=== PATIENT | male | born 1940 | race Caucasian/White ===

== ENCOUNTER 2017-03-11 10:02 | Inpatient (IN) | payer MEDICARE, OTHER ==
[~2017-03-11] VITALS: Ht 177.8 cm; Wt 108.0 kg
[2017-03-11 11:25] VITALS: BP 154/87
[2017-03-11] MEDS ORDERED: TAMS0.4C97 PO (12:18)
[2017-03-11] MEDS ORDERED: HYDR-2758 PO (12:18)
[2017-03-11 12:35] LABS: BASO % 1 % (0-3); EOS % 6 % (0-3); HEMATOCRIT 35.9 % (39.0-53.0); HEMOGLOBIN 11.9 g/dL (13.0-17.5); LYMPH # 1.1 x10^3/uL (1.0-4.8); LYMPH % 45 % (24-48); MEAN CORPUSCULAR HEMOGLOBIN 30 pg (25-35); MEAN CORPUSCULAR HGB CONC 33 g/dL (31-37); MEAN CORPUSCULAR VOLUME 92 fL (79-100); MONO % 1 % (0-9); NEUT % 47 % (31-73); PLATELET COUNT 214 x10^3/uL (140-400); RED BLOOD COUNT 3.93 x10^6/uL (4.30-5.70); RED CELL DISTRIBUTION WIDTH 15.8 % (11.5-14.5); WHITE BLOOD COUNT 2.4 x10^3/uL (4.0-11.0)
[2017-03-11 12:47] LABS: ALBUMIN 3.9 g/dL (3.4-5.0); CALCIUM 9.7 mg/dL (8.5-10.1); CREATININE 4.9 mg/dL (0.7-1.3); GFR 11.5; POTASSIUM 5.2 mmol/L (3.5-5.1); TOTAL BILIRUBIN 0.3 mg/dL (0.2-1.0); TOTAL PROTEIN 7.7 g/dL (6.4-8.2)
--- NOTE | 2017-03-11 13:32 | PDOC2 ---
GI CONSULT Reason For Consult: Abd pain HPI: HPI: 76 y/o male directly admitted by Dr. Edouard. H/o acute onset of severe abd pain since sneezing "hard" ~[address] @ [facility] reportedly showing right rib fracture and possible hernia. Also had MRI of back for pain and limited mobility that showed "something on the spine." Since that time has had diffuse abdominal pain, worst in epigastrium. Constant, keeps awake during the night, possibly worse after eating. Associated w/ nausea. Has lost 24 pounds unintentionally. Has had constipation also; w/ Dulcolax 2 tabs QD has 1 stool every 3-4 days. No vomiting/hematemesis (does cough up phlegm), dysphagia, reflux/heartburn, hematochezia, or melena. No previous EGD. Reports normal colonoscopy ~5 years ago ([facility] - says at [address]). No liver, pancreas, or gallbladder history. Has been taking hydrocodone for pain, was previously taking Aleve. Labs significant for WBC 2.4, Hgb 11.9 w/ normal indices, K 5.2, BUN 53, Cr 4.9. Normal LFTs. UA and CT A/P have been ordered. IR has also been consulted for biopsy of L3. PMH: PMH: right wrist fracture, right rib fracture, prostate cancer s/p radiation, appendectomy, tonsillectomy FH: Family History: No pertinent hx (denies GI cancers) Social History: Smoke: Quit ALCOHOL: none Drugs: None ROS: GEN: Denies fevers, chills, sweats HEENT: Denies blurred vision, sore throat CV: Denies chest pain RESP: Denies shortness of air, cough GI: Per HPI : Denies hematuria, dysuria ENDO: +weight loss NEURO: Denies confusion, dizziness MSK: Denies weakness, joint pain/swelling SKIN: Denies jaundice, pruritus Vitals: Vitals: Vital Signs Date Time Temp Pulse Resp B/P (MAP) Pulse Ox O2 Delivery O2 Flow Rate FiO2 03/11/17 11:25 97.5 87 18 154/87 (109) 93 Room Air 97.5 Labs: Labs: Laboratory Tests Test 03/11/17 12:15 White Blood Count 2.4 x10^3/uL (4.0-11.0) Red Blood Count 3.93 x10^6/uL (4.30-5.70) Hemoglobin 11.9 g/dL (13.0-17.5) Hematocrit 35.9 % (39.0-53.0) Mean Corpuscular Volume 92 fL (79-100) Mean Corpuscular Hemoglobin 30 pg (25-35) Mean Corpuscular Hemoglobin Concent 33 g/dL (31-37) Red Cell Distribution Width 15.8 % (11.5-14.5) Platelet Count 214 x10^3/uL (140-400) Neutrophils (%) (Auto) 47 % (31-73) Lymphocytes (%) (Auto) 45 % (24-48) Monocytes (%) (Auto) 1 % (0-9) Eosinophils (%) (Auto) 6 % (0-3) Basophils (%) (Auto) 1 % (0-3) Neutrophils # (Auto) 1.1 x10^3uL (1.8-7.7) Lymphocytes # (Auto) 1.1 x10^3/uL (1.0-4.8) Monocytes # (Auto) 0.0 x10^3/uL (0.0-1.1) Eosinophils # (Auto) 0.1 x10^3/uL (0.0-0.7) Basophils # (Auto) 0.0 x10^3/uL (0.0-0.2) Sodium Level 139 mmol/L (136-145) Potassium Level 5.2 mmol/L (3.5-5.1) Chloride Level 102 mmol/L (98-107) Carbon Dioxide Level 27 mmol/L (21-32) Anion Gap 10 (6-14) Blood Urea Nitrogen 53 mg/dL (8-26) Creatinine 4.9 mg/dL (0.7-1.3) Estimated GFR (Cockcroft-Gault) 11.5 BUN/Creatinine Ratio 11 (6-20) Glucose Level 111 mg/dL (70-99) Calcium Level 9.7 mg/dL (8.5-10.1) Total Bilirubin 0.3 mg/dL (0.2-1.0) Aspartate Amino Transf (AST/SGOT) 17 U/L (15-37) Alanine Aminotransferase (ALT/SGPT) 37 U/L (16-63) Alkaline Phosphatase 111 U/L (46-116) Total Protein 7.7 g/dL (6.4-8.2) Albumin 3.9 g/dL (3.4-5.0) Albumin/Globulin Ratio 1.0 (1.0-1.7) Allergies: Coded Allergies: No Known Medication Allergies (Verified Allergy, Intermediate, 03/11/17) Medications: Please see EMR. Imaging: Imaging: - PE: GEN: NAD HEENT: Atraumatic, PERRL LUNGS: CTAB anteriorly HEART: RRR ABD: NABS, soft, distended - right more than left, diffusely tender - worst in epigastrium, "knot" over lower right rib EXTREMITY: No edema SKIN: No rashes, no jaundice NEURO/PSYCH: A & O 3 A/P: A/P: Abd pain, nausea, weight loss -acute onset 4 months ago after sneezing, says diagnosed w/ rib fracture and possible hernia on CT @ [facility] -IR consulted for L3 biopsy (he reports previously abnormal MRI of spine); h/o prostate cancer s/p radiation w/ normal PSA recently -constant pain, worse in epigastrium -nausea/retching, has lost >20 pounds Constipation -1 stool every 3-4 days w/ Dulcolax -has been taking hydrocodone for pain (previously Aleve) -reports normal colonoscopy 5 years ago Leukopenia, anemia Hyperkalemia, LISETTE -per primary -- Await CT - r/o obstructive uropathy w/ elevated Cr and h/o prostate cancer. Urology services unavailable here. W/ elevated Cr, would need CT w/o contrast. Already started on PPI, agree w/ this. Add Miralax. FABIO SUTHERLAND Mar 11, 2017 13:32
[2017-03-11] MEDS: IV 1/2 NORMAL SALINE 1,000 ML IV SCH (14:11)
[2017-03-11] MEDS: ONDANSETRON PF 4 MG/2 ML VIAL. IV PRN (14:12)
[2017-03-11] MEDS: HYDROcodone/APAP 5/325MG 1 TAB TABLET PO PRN ×2 (14:12→21:34)
[2017-03-11 14:30] VITALS: BP 150/90
[2017-03-11] MEDS: POLYETHYLENE GLYCOL 3350 17 GM PACKET. PO SCH (15:00)
[2017-03-11 19:00] VITALS: BP 152/72
--- NOTE | 2017-03-11 21:11 | PDOC ---
GENERAL General: see dictated H&P. unexpected renal failure on admit labs and will get renal eval for same. ct not done yet. abnormal lesion L3 on recent MRI spine and will need biopsy as suspicious for malignancy. Problems: VITAL SIGNS Vital Signs: Vital Signs Date Time Temp Pulse Resp B/P (MAP) Pulse Ox O2 Delivery O2 Flow Rate FiO2 03/11/17 19:00 98.6 92 16 152/72 (98) 93 Room Air 98.6 I & O I & O Intake and Output 03/12/17 07:00 Intake Total 990 ml Output Total 350 ml Balance 640 ml Intake Oral 990 ml Output Urine Total 350 ml ALLERGIES Allergies: Allergies Coded Allergies Type Severity Reaction Last Updated Verified No Known Medication Allergies Allergy Intermediate 03/11/17 Yes MEDS Medications: Current Medications Medications (Trade) Dose Ordered Sig/Broderick Start Time Stop Time Status Last Admin Dose Admin Acetaminophen/ Hydrocodone Bitart (Lortab 5/325) 1 tab PRN Q4HRS PRN 03/11/17 12:30 03/11/17 14:12 1 TAB Ondansetron HCl (Zofran) 4 mg PRN Q6HRS PRN 03/11/17 13:15 03/11/17 14:12 4 MG Pantoprazole Sodium (Protonix) 40 mg DAILYAC 03/12/17 07:30 Polyethylene Glycol (miraLAX PACKET) 17 gm DAILY 03/11/17 15:00 Sodium Chloride 1,000 ml @ 75 mls/hr [id number] 03/11/17 12:30 03/11/17 14:11 75 MLS/HR Tamsulosin HCl (Flomax) 0.4 mg DAILY 03/12/17 09:00 LAB Lab: Laboratory Tests Test 03/11/17 12:15 White Blood Count 2.4 x10^3/uL (4.0-11.0) Red Blood Count 3.93 x10^6/uL (4.30-5.70) Hemoglobin 11.9 g/dL (13.0-17.5) Hematocrit 35.9 % (39.0-53.0) Mean Corpuscular Volume 92 fL (79-100) Mean Corpuscular Hemoglobin 30 pg (25-35) Mean Corpuscular Hemoglobin Concent 33 g/dL (31-37) Red Cell Distribution Width 15.8 % (11.5-14.5) Platelet Count 214 x10^3/uL (140-400) Neutrophils (%) (Auto) 47 % (31-73) Lymphocytes (%) (Auto) 45 % (24-48) Monocytes (%) (Auto) 1 % (0-9) Eosinophils (%) (Auto) 6 % (0-3) Basophils (%) (Auto) 1 % (0-3) Neutrophils # (Auto) 1.1 x10^3uL (1.8-7.7) Lymphocytes # (Auto) 1.1 x10^3/uL (1.0-4.8) Monocytes # (Auto) 0.0 x10^3/uL (0.0-1.1) Eosinophils # (Auto) 0.1 x10^3/uL (0.0-0.7) Basophils # (Auto) 0.0 x10^3/uL (0.0-0.2) Sodium Level 139 mmol/L (136-145) Potassium Level 5.2 mmol/L (3.5-5.1) Chloride Level 102 mmol/L (98-107) Carbon Dioxide Level 27 mmol/L (21-32) Anion Gap 10 (6-14) Blood Urea Nitrogen 53 mg/dL (8-26) Creatinine 4.9 mg/dL (0.7-1.3) Estimated GFR (Cockcroft-Gault) 11.5 BUN/Creatinine Ratio 11 (6-20) Glucose Level 111 mg/dL (70-99) Calcium Level 9.7 mg/dL (8.5-10.1) Total Bilirubin 0.3 mg/dL (0.2-1.0) Aspartate Amino Transf (AST/SGOT) 17 U/L (15-37) Alanine Aminotransferase (ALT/SGPT) 37 U/L (16-63) Alkaline Phosphatase 111 U/L (46-116) Total Protein 7.7 g/dL (6.4-8.2) Albumin 3.9 g/dL (3.4-5.0) Albumin/Globulin Ratio 1.0 (1.0-1.7) SIMA MICHAUD MD Mar 11, 2017 21:11
[2017-03-11 23:00] VITALS: BP 164/83
[2017-03-11 23:46] LABS: BILIRUBIN,URINE NEGATIVE (NEG); GLUCOSE,URINE NEGATIVE (NEG); NITRITE,URINE NEGATIVE (NEG); PROTEIN,URINE 30 mg/dL (NEG-TRACE); UROBILINOGEN,URINE 0.2 mg/dL (0.2 mg/dL)
[2017-03-11 23:56] LABS: BACTERIA,URINE 0 /HPF (0-FEW); SQUAMOUS EPITHELIAL CELL,UR FEW /LPF
--- NOTE | 2017-03-12 01:29 | HP ---
ADMIT DATE: 03/11/2017 CHIEF COMPLAINT AND HISTORY OF PRESENT ILLNESS: This is a 76-year-old white male, just met by myself in the office within the last month or less. He is referred by a friend who is the patient of ours. History was dating back is January, breaking his 8th rib at that point in time. Three weeks later, he had fallen and broken his right wrist. He still has ____. He described skin burning on the right upper quadrant, sensation at that point in time. His right upper quadrant was felt to be maybe a little more protuberant, but a CAT scan done on the outside had been negative. He was felt to have possibly a thoracic radicular-type presentation and eventually had an MRI, which showed kind of diffuse narrow abnormalities throughout the spine, but a lesion at L3 was suspicious for metastatic disease. PSA was checked on him and was normal at 1.06. He does have a history of prostate cancer, having received radiation to the same in the past. He also had chest x-ray, which showed no evidence of lung malignancy. MRI showed a 3 cm area of decreased signal intensity involving the L3 vertebral body concerning for metastasis. He was scheduled for bone biopsy. During this time, patient has also lost significant amount of weight. Again he had a CAT scan as an outpatient on 12/22 of this year showing no acute abnormalities. The patient had a BUN of 26 and creatinine of 1.3 done in September of this year at an outside office. PAST MEDICAL HISTORY: Remarkable for the prostate cancer and recent 8th rib fracture and right wrist fracture. MEDICATIONS: Currently hydrocodone ____, which he was taking for pain because of the upcoming bone biopsy that was scheduled. ALLERGIES: He has no known drug allergies. SOCIAL HISTORY: and lives at home with his . Does not abuse alcohol, drugs or tobacco. FAMILY HISTORY: Noncontributory. REVIEW OF SYSTEMS: Remarkable for lot of weight loss as well as epigastric pain, which has been getting worse and is triggered by eating. In addition, he has ongoing back pain that is actually a little higher than L3, but more in the lower thoracic area and this is tender to the touch over the bone. PHYSICAL EXAMINATION: GENERAL: He is a well-developed, well-nourished white male who appears uncomfortable. He was leaning over throughout the exam holding his head. VITAL SIGNS: Stable. He is afebrile. HEAD, EYES, EARS, NOSE AND THROAT: Remarkable for glasses. NECK: Supple without adenopathy or thyromegaly. CHEST: Clear to auscultation and percussion. HEART: Regular rate and rhythm without S3, S4 or murmur. ABDOMEN: Reveals epigastric tenderness without definite hepatosplenomegaly or mass. EXTREMITIES: Without cyanosis, clubbing or edema. NEUROLOGIC: He is intact. IMPRESSION: Abdominal pain with weight loss. Initial laboratory findings at the hospital being that of acute renal failure. In addition, concern for metastatic disease in the spine as outlined above. PLAN: The patient has been admitted. Renal will be consulted. GI has been consulted. Protonix has been started. IR has been consulted for biopsy of the L3 vertebral body and the patient will be monitored, managed and treated appropriately. SIMA MICHAUD MD DR: RIMA/zhane JOB#: [id number] / [id number] SIMA Mclaughlin MD
[2017-03-12] MEDS: IV 1/2 NORMAL SALINE 1,000 ML IV SCH ×3 (03:04→23:00)
[2017-03-12 03:20] VITALS: BP 152/87
[2017-03-12] MEDS: HYDROcodone/APAP 5/325MG 1 TAB TABLET PO PRN (04:48)
[2017-03-12] MEDS: ONDANSETRON PF 4 MG/2 ML VIAL. IV PRN (04:51)
[2017-03-12 07:30] VITALS: BP 132/70
[2017-03-12] MEDS ORDERED: IOHEXOL 240 MG/ML 50ML VIAL. PO ONE (09:00)
[2017-03-12] MEDS: POLYETHYLENE GLYCOL 3350 17 GM PACKET. PO SCH ×2 (09:00→17:00)
[2017-03-12] MEDS ORDERED: CONTRAST GIVEN MC PRN (09:15)
--- NOTE | 2017-03-12 11:24 | RAD ---
CT of the abdomen and pelvis without contrast, 03/12/2017: History: Abdominal and back pain No IV contrast was administered for this exam due to the patient's known renal insufficiency. Oral contrast material was given for GI tract opacification. The unopacified liver is unremarkable. No gallbladder abnormality is seen. The pancreas shows no abnormality. The spleen is of normal size. There is mild bilateral renal cortical scarring. There is a small 1.4 cm nodule in the posteromedial aspect of the right kidney. This may be a cyst, although that cannot be stated with certainty on these noncontrast scans. The kidneys show no evidence of obstruction. There is mild aortoiliac calcific plaquing without evidence of aneurysm. Numerous small para-aortic, pericaval and mesenteric lymph nodes are seen without definite pathologic enlargement. There are mildly enlarged right iliac region lymph nodes including a 2.2 cm right common iliac node and a 2 cm node in the right obturator internus region. The prostate gland is mildly enlarged measuring 5.3 cm in width. It contains multiple calcifications. There is moderate diffuse bladder wall thickening. Several small sigmoid diverticula are noted without evidence of paracolic inflammation. The appendix is not visualized. No dilated appendix is seen. The bowel loops are not distended. No free air or significant free fluid is evident in the abdomen or pelvis. Moderate multilevel degenerative changes are present in the spine. There are multiple small bony lucencies, best seen in the spine. The most prominent of these is noted in the right side of the L2 vertebral body with associated defects in the superior and inferior endplates at this level. IMPRESSION: 1. Mild nonspecific prostatic enlargement. 2. Moderate diffuse bladder wall thickening, probably due to chronic bladder outlet obstruction versus cystitis. 3. Mild right iliac adenopathy. 4. Multiple lytic bony lesions with an associated pathologic fracture at L2. The findings suggest metastatic disease versus multiple myeloma. 5. Small nonspecific right renal nodule. PQRS Compliance Statement: One or more of the following individualized dose reduction techniques were utilized for this examination: 1. Automated exposure control 2. Adjustment of the mA and/or kV according to patient size 3. Use of iterative reconstruction technique
[2017-03-12 11:30] VITALS: BP 158/90
--- NOTE | 2017-03-12 12:29 | PDOC2 ---
CONSULT Date of Consult Date of Consult DATE: 03/12/17 TIME: 12:21 Reason for Consult Reason for Consult: LISETTE Referring Physician Referring Physician: APPL Identification/Chief Complaint Chief Complaint THIS IS A 76 YR OLD HERE WITH BACK PAIN. LABS SHOWED A CR OF 4.9. BASELINE CR IS 1.3. POOR APPETITE FOR 3 WEEKS. HAS NOT NOTED ANY CHANGE IN URINE PATTERN. HAS BEEN TAKING ALEVE FOR SEVERAL WEEKS PRN FOR BACK PAIN. NO DIFFICULTY IN EMPTYING HIS BLADDER. HAS BEEN ON RAPAFLO. HX NOTABLE FOR PROSTATE CANCER DIAGNOSED ABOUT 5 YRS AGO AND THIS WAS TREATED WITH RAD Problems: Source Source: Chart review, Patient History of Present Illness Reason for Visit: ABOVE Past Medical History Cardiovascular: HTN Renal/: Benign prostatic enlarg., Prostate Ca. Past Surgical History Past Surgical History PROSTATE BIOPSY Family History Family History: Hypertension Social History Quit ALCOHOL: none Drugs: None Lives: with Family Current Medications Current Medications Current Medications Acetaminophen/ Hydrocodone Bitart (Lortab 5/325) 1 tab PRN Q4HRS PRN PO PAIN Last administered on 03/12/17 04:48; Start 03/11/17 at 12:30 Tamsulosin HCl (Flomax) 0.4 mg DAILY PO ; Start 03/12/17 at 09:00 Pantoprazole Sodium (Protonix) 40 mg DAILYAC PO ; Start 03/12/17 at 07:30 Sodium Chloride 1,000 ml @ 75 mls/hr [id number] IV Last administered on 03:04; Start 03/11/17 at 12:30 Ondansetron HCl (Zofran) 4 mg PRN Q6HRS PRN IV NAUSEA/VOMITING Last administered on 03/12/17 04:51; Start 03/11/17 at 13:15 Polyethylene Glycol (miraLAX PACKET) 17 gm DAILY PO ; Start 03/11/17 at 15:00 Iohexol (Omnipaque 240 Mg/ml) 30 ml 1X ONCE PO Last administered on 03/12/17 10:43; Start 03/12/17 at 09:00; Stop 03/12/17 at 09:05; Status DC Info (Do NOT chart on this entry -- for MONITORING) 1 each PRN DAILY PRN MC SEE COMMENTS; Start 03/12/17 at 09:15; Stop 03/14/17 at 09:14 Active Scripts Active Reported Flomax (Tamsulosin Hcl) 0.4 Mg Cap.er.24h 1 Cap PO DAILY Hydrocodone-Apap 5-325 (Hydrocodone Bit/Acetaminophen) 1 Each Tablet 1 Tab PO PRN Q4HRS PRN Allergies Allergies: Coded Allergies: No Known Medication Allergies (Verified Allergy, Intermediate, 03/11/17) ROS General: YES: Fatigue, Appetite PSYCHOLOGICAL ROS: YES: Anxiety Eyes: Yes Decreased vision HEENT: YES: Heacaches Respiratory: YES: Cough, Shortness of breath Cardiovascular: yes Chest Pain Genitourinary: YES Other (NOCTURIA) Musculoskeletal: Yes Muscular Weakness Neurological: Yes Weakness Skin: Yes Dry Skin Physical Exam General: Alert, Oriented X3, Cooperative, No acute distress HEENT: Atraumatic, PERRLA Heart: Normal S1 Abdomen: Normal bowel sounds, Soft Extremities: No clubbing Neuro: Normal speech, Cranial nerves 3-12 NL Psych/Mental Status: Mental status NL, Mood NL MUSCULOSKELETAL: No deformity, No swelling Vitals VITALS Vital Signs Date Time Temp Pulse Resp B/P (MAP) Pulse Ox O2 Delivery O2 Flow Rate FiO2 03/12/17 08:00 Room Air 03/12/17 07:30 97.7 69 18 132/70 (90) 93 97.7 Labs Labs Laboratory Tests Test 03/11/17 12:15 03/11/17 23:41 White Blood Count 2.4 x10^3/uL (4.0-11.0) Red Blood Count 3.93 x10^6/uL (4.30-5.70) Hemoglobin 11.9 g/dL (13.0-17.5) Hematocrit 35.9 % (39.0-53.0) Mean Corpuscular Volume 92 fL (79-100) Mean Corpuscular Hemoglobin 30 pg (25-35) Mean Corpuscular Hemoglobin Concent 33 g/dL (31-37) Red Cell Distribution Width 15.8 % (11.5-14.5) Platelet Count 214 x10^3/uL (140-400) Neutrophils (%) (Auto) 47 % (31-73) Lymphocytes (%) (Auto) 45 % (24-48) Monocytes (%) (Auto) 1 % (0-9) Eosinophils (%) (Auto) 6 % (0-3) Basophils (%) (Auto) 1 % (0-3) Neutrophils # (Auto) 1.1 x10^3uL (1.8-7.7) Lymphocytes # (Auto) 1.1 x10^3/uL (1.0-4.8) Monocytes # (Auto) 0.0 x10^3/uL (0.0-1.1) Eosinophils # (Auto) 0.1 x10^3/uL (0.0-0.7) Basophils # (Auto) 0.0 x10^3/uL (0.0-0.2) Sodium Level 139 mmol/L (136-145) Potassium Level 5.2 mmol/L (3.5-5.1) Chloride Level 102 mmol/L (98-107) Carbon Dioxide Level 27 mmol/L (21-32) Anion Gap 10 (6-14) Blood Urea Nitrogen 53 mg/dL (8-26) Creatinine 4.9 mg/dL (0.7-1.3) Estimated GFR (Cockcroft-Gault) 11.5 BUN/Creatinine Ratio 11 (6-20) Glucose Level 111 mg/dL (70-99) Calcium Level 9.7 mg/dL (8.5-10.1) Total Bilirubin 0.3 mg/dL (0.2-1.0) Aspartate Amino Transf (AST/SGOT) 17 U/L (15-37) Alanine Aminotransferase (ALT/SGPT) 37 U/L (16-63) Alkaline Phosphatase 111 U/L (46-116) Total Protein 7.7 g/dL (6.4-8.2) Albumin 3.9 g/dL (3.4-5.0) Albumin/Globulin Ratio 1.0 (1.0-1.7) Urine Collection Type Unknown Urine Color Yellow Urine Clarity Clear Urine pH 6.0 Urine Specific [place] 1.010 Urine Protein 30 mg/dL (NEG-TRACE) Urine Glucose (UA) Negative mg/dL (NEG) Urine Ketones (Stick) Negative mg/dL (NEG) Urine Blood Moderate (NEG) Urine Nitrite Negative (NEG) Urine Bilirubin Negative (NEG) Urine Urobilinogen Dipstick 0.2 mg/dL (0.2 mg/dL) Urine Leukocyte Esterase Negative (NEG) Urine RBC 6-10 /HPF (0-2) Urine WBC 1-4 /HPF (0-4) Urine Squamous Epithelial Cells Few /LPF Urine Bacteria 0 /HPF (0-FEW) Urine Mucus Slight /LPF Laboratory Tests Test 03/11/17 23:41 Urine Collection Type Unknown Urine Color Yellow Urine Clarity Clear Urine pH 6.0 Urine Specific [place] 1.010 Urine Protein 30 mg/dL (NEG-TRACE) Urine Glucose (UA) Negative mg/dL (NEG) Urine Ketones (Stick) Negative mg/dL (NEG) Urine Blood Moderate (NEG) Urine Nitrite Negative (NEG) Urine Bilirubin Negative (NEG) Urine Urobilinogen Dipstick 0.2 mg/dL (0.2 mg/dL) Urine Leukocyte Esterase Negative (NEG) Urine RBC 6-10 /HPF (0-2) Urine WBC 1-4 /HPF (0-4) Urine Squamous Epithelial Cells Few /LPF Urine Bacteria 0 /HPF (0-FEW) Urine Mucus Slight /LPF Assessment/Plan Assessment/Plan IMP LISETTE WITH CR OF OF 4.9 DEHYDRATION PROB MILD CKD WITH BASELINE CR OF 1.3 HX OF PROSTATE CANCER-TX WITH RAD - HAS NOT SEEN UROLOGY IN 4 YEARS BACK PAIN-CONCERNING FOR METASTATIC DZ HTN BPH PLAN STOP ALEVE USE IVF'S LABS IN AM CT NEG FOR HYDRONEPHROSIS OR BLADDER OUTLET OBSTRUCTION BLADDER SCAN NEG SUGGEST HEME/ONC ELMIRA POZO MD Mar 12, 2017 12:29
--- NOTE | 2017-03-12 14:14 | PDOC ---
Subjective: Subjective: Abd pain better. Hungry - NPO for biopsy. Right side hurts when rolls to right. Objective: Vital Signs: Vital Signs Date Time Temp Pulse Resp B/P (MAP) Pulse Ox O2 Delivery O2 Flow Rate FiO2 03/12/17 08:00 Room Air 03/12/17 07:30 97.7 69 18 132/70 (90) 93 97.7 Labs: Laboratory Tests Test 03/11/17 23:41 Urine Collection Type Unknown Urine Color Yellow Urine Clarity Clear Urine pH 6.0 Urine Specific [place] 1.010 Urine Protein 30 mg/dL Urine Glucose (UA) Negative mg/dL Urine Ketones (Stick) Negative mg/dL Urine Blood Moderate Urine Nitrite Negative Urine Bilirubin Negative Urine Urobilinogen Dipstick 0.2 mg/dL Urine Leukocyte Esterase Negative Urine RBC 6-10 /HPF Urine WBC 1-4 /HPF Urine Squamous Epithelial Cells Few /LPF Urine Bacteria 0 /HPF Urine Mucus Slight /LPF Imaging: CT A/P w/ oral contrast The unopacified liver is unremarkable. No gallbladder abnormality is seen. The pancreas shows no abnormality. The spleen is of normal size. There is mild bilateral renal cortical scarring. There is a small 1.4 cm nodule in the posteromedial aspect of the right kidney. This may be a cyst, although that cannot be stated with certainty on these noncontrast scans. The kidneys show no evidence of obstruction. There is mild aortoiliac calcific plaquing without evidence of aneurysm. Numerous small para-aortic, pericaval and mesenteric lymph nodes are seen without definite pathologic enlargement. There are mildly enlarged right iliac region lymph nodes including a 2.2 cm right common iliac node and a 2 cm node in the right obturator internus region. The prostate gland is mildly enlarged measuring 5.3 cm in width. It contains multiple calcifications. There is moderate diffuse bladder wall thickening. Several small sigmoid diverticula are noted without evidence of paracolic inflammation. The appendix is not visualized. No dilated appendix is seen. The bowel loops are not distended. No free air or significant free fluid is evident in the abdomen or pelvis. Moderate multilevel degenerative changes are present in the spine. There are multiple small bony lucencies, best seen in the spine. The most prominent of these is noted in the right side of the L2 vertebral body with associated defects in the superior and inferior endplates at this level. IMPRESSION: 1. Mild nonspecific prostatic enlargement. 2. Moderate diffuse bladder wall thickening, probably due to chronic bladder outlet obstruction versus cystitis. 3. Mild right iliac adenopathy. 4. Multiple lytic bony lesions with an associated pathologic fracture at L2. The findings suggest metastatic disease versus multiple myeloma. 5. Small nonspecific right renal nodule. PE: GEN: NAD LUNGS: clear HEART: RRR ABD: S/NT, distended/obese NEURO/PSYCH: A & O 3 A/P: Abnormal CT -above, concerning for metastatic disease vs multiple myeloma ---> to have biopsy w/ IR -h/o prostate cancer s/p radiation Abd pain, nausea - improved ->20 pound weight loss -recent right rib fracture -some constipation, colonoscopy 5 years ago Leukopenia, anemia LISETTE/CKD -per nephrology ---> BMP ordered for tomorrow -- Abd pain better. Await biopsy. ?consult hematology/oncology Continue Miralax and PPI. FABIO SUTHERLAND Mar 12, 2017 14:14
[2017-03-12 14:30] VITALS: BP 152/85
[2017-03-12] MEDS: TAMSULOSIN 0.4 MG CAP.ER.24H. PO SCH (15:34)
[2017-03-12] MEDS: PANTOPRAZOLE 40 MG TABLET.DR. PO SCH (15:34)
[2017-03-12 19:00] VITALS: BP 160/61
--- NOTE | 2017-03-12 20:54 | PDOC ---
GENERAL General: vss and afebrile. awake and alert and uncomfortable. 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 IR consulted yesterday for biopsy. renal and gi help appreciated. stomach pain better with protonix and hungry this am cw improving gu vs gastritis. will consult oncology. await biopsy reports. PSA about 1 last week in office. myeloma would seem possible with associated renal failure but normal serum protein levels. chest clear and heart regular and abdominal tenderness decreased dramatically. Problems: VITAL SIGNS Vital Signs: Vital Signs Date Time Temp Pulse Resp B/P (MAP) Pulse Ox O2 Delivery O2 Flow Rate FiO2 03/12/17 19:00 97.7 95 21 160/61 (94) 93 Room Air 97.7 I & O I & O Intake and Output 03/13/17 07:00 Intake Total 0 ml Balance 0 ml Intake Oral 0 ml # Voids 5 ALLERGIES Allergies: Allergies Coded Allergies Type Severity Reaction Last Updated Verified No Known Medication Allergies Allergy Intermediate 03/11/17 Yes MEDS Medications: Current Medications Medications (Trade) Dose Ordered Sig/Broderick Start Time Stop Time Status Last Admin Dose Admin Acetaminophen/ Hydrocodone Bitart (Lortab 5/325) 1 tab PRN Q4HRS PRN 03/11/17 12:30 03/12/17 04:48 1 TAB Info (Do NOT chart on this entry -- for MONITORING) 1 each PRN DAILY PRN 03/12/17 09:15 03/14/17 09:14 Iohexol (Omnipaque 240 Mg/ml) 30 ml 1X ONCE 03/12/17 09:00 03/12/17 09:05 DC 03/12/17 10:43 30 ML Ondansetron HCl (Zofran) 4 mg PRN Q6HRS PRN 03/11/17 13:15 03/12/17 04:51 4 MG Pantoprazole Sodium (Protonix) 40 mg DAILYAC 03/12/17 07:30 03/12/17 15:34 40 MG Polyethylene Glycol (miraLAX PACKET) 17 gm DAILY 03/12/17 17:00 Sodium Chloride 1,000 ml @ 125 mls/hr Q8H 03/11/17 12:30 03/12/17 15:12 125 MLS/HR Tamsulosin HCl (Flomax) 0.4 mg DAILY 03/12/17 09:00 03/12/17 15:34 0.4 MG LAB Lab: Laboratory Tests Test 03/11/17 23:41 Urine Collection Type Unknown Urine Color Yellow Urine Clarity Clear Urine pH 6.0 Urine Specific [place] 1.010 Urine Protein 30 mg/dL (NEG-TRACE) Urine Glucose (UA) Negative mg/dL (NEG) Urine Ketones (Stick) Negative mg/dL (NEG) Urine Blood Moderate (NEG) Urine Nitrite Negative (NEG) Urine Bilirubin Negative (NEG) Urine Urobilinogen Dipstick 0.2 mg/dL (0.2 mg/dL) Urine Leukocyte Esterase Negative (NEG) Urine RBC 6-10 /HPF (0-2) Urine WBC 1-4 /HPF (0-4) Urine Squamous Epithelial Cells Few /LPF Urine Bacteria 0 /HPF (0-FEW) Urine Mucus Slight /LPF SIMA MICHAUD MD Mar 12, 2017 20:54
[2017-03-12 23:07] VITALS: BP 139/70
[2017-03-13] VITALS (7 sets, daily range): BP systolic 142–188; BP diastolic 79–88
[2017-03-13 05:13] LABS: INR 1.1 (0.8-1.1); PROTHROMBIN TIME PATIENT 13.5 SEC (11.7-14.0)
[2017-03-13 05:28] LABS: CALCIUM 8.9 mg/dL (8.5-10.1); GFR 11.3; POTASSIUM 5.1 mmol/L (3.5-5.1)
[2017-03-13] MEDS: IV 1/2 NORMAL SALINE 1,000 ML IV SCH ×3 (07:23→22:06)
--- NOTE | 2017-03-13 07:51 | PDOC ---
GENERAL General: vss and afebrile. awake and alert. stomach much better and hungry this am. for bone biopsy this am. renal function without improvement with hydration so far. exam stable. expect answer to come from bone biopsy. protein electrophoresis ordered. Problems: VITAL SIGNS Vital Signs: Vital Signs Date Time Temp Pulse Resp B/P (MAP) Pulse Ox O2 Delivery O2 Flow Rate FiO2 03/13/17 03:00 97.9 77 19 188/88 (121) 94 Room Air 97.9 ALLERGIES Allergies: Allergies Coded Allergies Type Severity Reaction Last Updated Verified No Known Medication Allergies Allergy Intermediate 03/11/17 Yes MEDS Medications: Current Medications Medications (Trade) Dose Ordered Sig/Broderick Start Time Stop Time Status Last Admin Dose Admin Acetaminophen/ Hydrocodone Bitart (Lortab 5/325) 1 tab PRN Q4HRS PRN 03/11/17 12:30 03/12/17 04:48 1 TAB Info (Do NOT chart on this entry -- for MONITORING) 1 each PRN DAILY PRN 03/12/17 09:15 03/14/17 09:14 Iohexol (Omnipaque 240 Mg/ml) 30 ml 1X ONCE 03/12/17 09:00 03/12/17 09:05 DC 03/12/17 10:43 30 ML Ondansetron HCl (Zofran) 4 mg PRN Q6HRS PRN 03/11/17 13:15 03/12/17 04:51 4 MG Pantoprazole Sodium (Protonix) 40 mg DAILYAC 03/12/17 07:30 03/12/17 15:34 40 MG Polyethylene Glycol (miraLAX PACKET) 17 gm DAILY 03/12/17 17:00 Sodium Chloride 1,000 ml @ 125 mls/hr Q8H 03/11/17 12:30 03/13/17 07:23 125 MLS/HR Tamsulosin HCl (Flomax) 0.4 mg DAILY 03/12/17 09:00 03/12/17 15:34 0.4 MG LAB Lab: Laboratory Tests Test 03/13/17 04:41 Prothrombin Time 13.5 SEC (11.7-14.0) Prothromb Time International Ratio 1.1 (0.8-1.1) Sodium Level 135 mmol/L (136-145) Potassium Level 5.1 mmol/L (3.5-5.1) Chloride Level 102 mmol/L (98-107) Carbon Dioxide Level 25 mmol/L (21-32) Anion Gap 8 (6-14) Blood Urea Nitrogen 51 mg/dL (8-26) Creatinine 5.0 mg/dL (0.7-1.3) Estimated GFR (Cockcroft-Gault) 11.3 Glucose Level 103 mg/dL (70-99) Calcium Level 8.9 mg/dL (8.5-10.1) SIMA MICHAUD MD Mar 13, 2017 07:51
[2017-03-13] MEDS: POLYETHYLENE GLYCOL 3350 17 GM PACKET. PO SCH ×2 (09:00)
--- NOTE | 2017-03-13 11:09 | PDOC1 ---
IR Pre-Procedure H&P H&P Update The lesion was shown to be at L2 on CT Abdomen Pelvis, not L3 as per outside report. Otherwise, no significant change from Dr. Baljit steele H&P done on 03/11/17. EUGENIE REYNA MD Mar 13, 2017 11:09
[2017-03-13] MEDS ORDERED: LIDOCAINE 1% / SOD BICARB 8.4% 20 ML VIAL. IJ ONE ×2 (11:11→11:15)
[2017-03-13] MEDS ORDERED: MIDAZOLAM HCL/PF 2 MG/2 ML VIAL. ONE (11:11)
[2017-03-13] MEDS ORDERED: fentaNYL PF VIAL 100 MCG/2 ML VIAL ONE (11:11)
[2017-03-13 11:14] LABS: % SAT IRON 44 % (15-34); IRON,SERUM 105 ug/dL (65-175)
[2017-03-13] MEDS ORDERED: MIDAZOLAM HCL/PF 2 MG/2 ML VIAL. IV ONE (11:15)
[2017-03-13] MEDS ORDERED: fentaNYL PF VIAL 100 MCG/2 ML VIAL IV ONE (11:15)
--- NOTE | 2017-03-13 11:25 | PDOC ---
Subjective: Subjective: Waiting on biopsy, worried they won't "put him out." No abd pain or nausea. Tolerating a snack and dinner last night. No BM - wants Dulcolax instead of Miralax. Objective: Vital Signs: Vital Signs Date Time Temp Pulse Resp B/P (MAP) Pulse Ox O2 Delivery O2 Flow Rate FiO2 03/13/17 10:53 98.3 87 18 163/83 (109) 93 Room Air 98.3 Labs: Laboratory Tests Test 03/13/17 04:41 03/13/17 10:52 Reticulocyte Count (auto) 0.8 % Prothrombin Time 13.5 SEC Prothromb Time International Ratio 1.1 Sodium Level 135 mmol/L Potassium Level 5.1 mmol/L Chloride Level 102 mmol/L Carbon Dioxide Level 25 mmol/L Anion Gap 8 Blood Urea Nitrogen 51 mg/dL Creatinine 5.0 mg/dL Estimated GFR (Cockcroft-Gault) 11.3 Glucose Level 103 mg/dL Calcium Level 8.9 mg/dL Ferritin 537 ng/mL Iron Level 105 ug/dL Total Iron Binding Capacity 237 ug/dL Iron Saturation 44 % PE: GEN: NAD LUNGS: CTAB HEART: RRR ABD: NABS, S/ND/NT NEURO/PSYCH: A & O 3 A/P: Abnormal CT -above, concerning for metastatic disease vs multiple myeloma ---> to have L2 biopsy w/ IR -h/o prostate cancer s/p radiation, also has leukopenia, anemia -Dr. Alves following; CT chest, bone scan, and additional labs ordered Abd pain, nausea - resolved -on PPI Constipation -has Miralax ordered, he wants Dulcolax instead LISETTE/CKD -per nephrology, Cr 5 -- Will add Dulcolax per his request. Continue PPI. Await biopsy, further renal eval, additional labs and imaging. FABIO SUTHERLAND Mar 13, 2017 11:25
[2017-03-13] MEDS ORDERED: BISACODYL 5 MG TABLET.DR. PO PRN (11:30)
[2017-03-13 11:34] LABS: FOLATE 8.42 ng/ml (3.2-20.0)
--- NOTE | 2017-03-13 12:08 | PDOC ---
Renal-Progress Notes Subjective Notes Notes NO NEW COMPLAINTS History of Present Illness Hx of present illness STABLE Vitals Vitals Vital Signs Date Time Temp Pulse Resp B/P (MAP) Pulse Ox O2 Delivery O2 Flow Rate FiO2 03/13/17 10:53 98.3 87 18 163/83 (109) 93 Room Air 98.3 Weight Weight [ ] Labs Labs Laboratory Tests Test 03/13/17 04:41 03/13/17 10:52 Reticulocyte Count (auto) 0.8 % (0.5-2.5) Prothrombin Time 13.5 SEC (11.7-14.0) Prothromb Time International Ratio 1.1 (0.8-1.1) Sodium Level 135 mmol/L (136-145) Potassium Level 5.1 mmol/L (3.5-5.1) Chloride Level 102 mmol/L (98-107) Carbon Dioxide Level 25 mmol/L (21-32) Anion Gap 8 (6-14) Blood Urea Nitrogen 51 mg/dL (8-26) Creatinine 5.0 mg/dL (0.7-1.3) Estimated GFR (Cockcroft-Gault) 11.3 Glucose Level 103 mg/dL (70-99) Calcium Level 8.9 mg/dL (8.5-10.1) Ferritin 537 ng/mL (26-388) Iron Level 105 ug/dL (65-175) Total Iron Binding Capacity 237 ug/dL (250-450) Iron Saturation 44 % (15-34) Vitamin B12 Level 379 pg/mL (247-911) Serum Folate 8.42 ng/ml (3.2-20.0) Review of Systems Constitutional: yes: malaise, weakness, alert, oriented Ears/Nose/Throat: Yes: no symptom reported Eyes: Yes: no symptom reported Pulmonary: Yes no symptom reported Cardiovascular: Yes no symptom reported Gastrointestional: Yes: no symptom reported Genitourinary: Yes: no symptom reported Musculoskeletal: Yes: back pain Endocrine: Yes: no symptom reported Physical Exam General Appearance: no apparent distress Skin: warm Respiratory: bilateral CTA Heart: S1S2 Abdomen: soft, bowel sounds present Genitourinary: bladder flat Extremities: pulses present Neurology: alert, oriented Assessment Assessment IMP LISETTE WITH CR UP TO 5.0-NON OLIGURIC ATN CKD STAGE 2 MOST LIKELY WITH CR OF 1.3 IN SEPTEMBER THIS YEAR HX OF PROSTATE CANCER ? MET SPINE LESION VS MULTIPLE MYELOMA DEHYDRATION HTN BPH PLAN CONT TO AVOID NSAIDS CONT WITH IVF'S BONE MARROW BIOPSY SPEP PENDING LABS IN AM HOLD OFF ON DIALYSIS ELMIRA DUNCAN MD Mar 13, 2017 12:08
--- NOTE | 2017-03-13 12:29 | PDOC ---
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
--- NOTE | 2017-03-13 12:38 | RAD ---
PROCEDURES: 1. Right transpedicular vertebral body biopsy The procedure, risks, and complications, to include bleeding, infection, cement embolization, compression of the spinal canal and cement extrusion were explained to the patient and they understood and wished to proceed. Consent form signed. The back was prepped and draped using maximal sterile technique and 1% Xylocaine used for local topical anesthesia and deep periosteal anesthesia. Utilizing careful fluoroscopic biplane positioning, the L2 pedicles were identified. Using a right transpedicular approach, a trocar needle into the posterior aspect of the L2 vertebral body. Under very careful biplane fluoroscopic guidance, 4 core biopsies were obtained using both the coaxial biopsy needle as well as a Bard biopsy device given the soft nature of the lesion. Following the biopsies, the needles were removed, pressure placed, and hemostasis obtained. The patient tolerated the procedure well and returned to the floor in stable condition. Sedation: Conscious sedation for 68 minutes. Intravenous versed and fentanyl were given and the patient was monitored by the nurses in attendance. Complications: None Fluoroscopy time: 11.3 minutes DAP: 2688.6 uGycm2 IMPRESSION: 1. Fluoroscopy-guided percutaneous transpedicular L2 vertebral body biopsy.
--- NOTE | 2017-03-13 13:01 | CONS ---
DATE OF CONSULTATION: 03/13/2017 HISTORY OF PRESENT ILLNESS: The patient is a 76-year-old gentleman who mentions that he has noticed significant back pain in the lower area since 12/2016. He reports that the pain started after he sneezed and he suddenly felt an acute pain in the lower back. He has a history of 8th rib fracture in 01/2017. Three weeks after that, he fell and broke his right wrist. He underwent MRI of the spine, which revealed a lesion at L3, suspicious for metastatic disease. He has a history of prostate cancer status post radiation therapy [place] [address] Sánchez. He underwent a PSA by Dr. Edouard in 2017 and it was normal at 1.06. He has also had a chest x-ray as outpatient, which was negative. He underwent a CT scan of the abdomen and pelvis on 03/12/2017 because of his complaints of abdominal discomfort and this revealed multiple lytic bony lesions with a pathologic fracture at L2. The findings are suggestive of multiple myeloma versus metastatic disease. There is also evidence of diffuse bladder wall thickening due to chronic bladder outlet obstruction versus cystitis. There is nonspecific prostatic enlargement. There are mildly enlarged right iliac lymph nodes measuring 2.2 cm. There is some nonspecific right renal nodule. With the evidence of bone lesions, malignancy was suspected and hence I was consulted for further evaluation. PAST MEDICAL HISTORY: Prostate cancer approximately in 2011, status post radiation therapy. Recent 8th rib fracture and right wrist fracture. SOCIAL HISTORY: He is , lives at home with his . No smoking or alcohol abuse. He has history of smoking for about 2-3 years when he was in his 20s. FAMILY HISTORY: Negative for malignancy. REVIEW OF SYSTEMS: A 12-point review of system was performed. Pertinent positives are mentioned in the history of present illness. Rest of the system review is negative. PHYSICAL EXAMINATION: GENERAL APPEARANCE: The patient is a 76-year-old gentleman, who is well developed, well nourished, and in no acute cardiorespiratory distress. VITAL SIGNS: Blood pressure 162/88, temperature 98.4. HEENT: Head: Atraumatic, normocephalic. Eyes: No icterus. NECK: Supple. CHEST: Bilaterally symmetrical. No crepitations or rhonchi heard. HEART: S1, S2 normal. ABDOMEN: Soft, nontender. CENTRAL NERVOUS SYSTEM: No focal neurological deficits. LYMPHATICS: No lymphadenopathy. SKIN: No rashes. PSYCHOLOGIC: Mood and affect are appropriate. MUSCULOSKELETAL: No joint effusions. LABORATORY DATA: WBC 2.4, hemoglobin 11.9, platelet count 214, MCV 92. Creatinine of 5.0, calcium is 8.9, sodium 135, potassium 5.1, total bilirubin 0.3, AST 17, ALT 37, alkaline phosphatase 111, total protein 7.7, albumin 3.9. IMPRESSION AND PLAN: 1. Bone lesions. The patient has evidence lytic lesions noted on CT scan of the abdomen and pelvis on 03/12/2017. There is a pathologic fracture at L2 vertebrae. Multiple small bony lucencies are best seen in the spine. Differential diagnosis includes metastatic disease versus multiple myeloma. PSA has been normal at 1.06. Hence, I do not suspect recurrence of the prostate cancer. He is already scheduled to have a bone biopsy today by Interventional Radiology and I agree to proceed with that. CT scan of the abdomen and pelvis does not reveal any obvious primary malignancy. I will obtain CT scan of the chest to evaluate for malignancy. I will also obtain a bone scan and skeletal survey. Serum protein electrophoresis has already been ordered and I will add immunofixation studies and serum free light chains. I discussed in detail with the patient regarding the differential diagnosis and the workup needed and he understands and agrees with the plan. 2. Normochromic normocytic anemia. I will obtain iron studies, B12 and folic acid levels. This could be related to underlying possible malignancy and also renal insufficiency. 3. Leukopenia, likely reactive. Continue to monitor. 4. Renal failure with a creatinine of 5.0 on 03/13/2017 and a BUN of 51. Continue workup per Appl. MICHAEL CEJA MD DR: TR/zhane JOB#: [id number] / [id number] KEMAL
--- NOTE | 2017-03-13 15:59 | RAD ---
Metastatic skeletal survey, 03/13/2017: History: Lytic bone lesions Multiple views of the bony skeleton were obtained in the following findings delineated: 1. An AP view of the chest demonstrates no definite lytic bone lesions. There is mild linear atelectasis or scarring in the right base. 2. AP and lateral views of the cervical spine demonstrate moderate multilevel degenerative change with disc space narrowing and facet joint arthropathy. There is patchy bony demineralization. 3. AP and lateral views of the thoracic spine demonstrate moderate marginal spurring. There is anterior bony bridging at multiple levels. 4. AP and lateral views of the lumbar spine demonstrate a mild inferior endplate deformity at L2. The recent CT study suggests that this is a pathologic fracture. There are moderate scattered degenerative changes. 5. A lateral view of the skull demonstrates several small calvarial lucencies. 6. An AP view of the pelvis shows no definite lytic lesion. 7. AP views of both femurs and lower legs reveal no destructive bony lesion. 8. AP views of both humeri and forearms show no destructive bone lesion. There is deformity of the distal ulna and radius compatible with an old healed fracture. IMPRESSION: 1. Patchy bony demineralization. 2. Several small calvarial lucencies compatible with lytic lesions versus venous lakes. 3. Moderate multilevel degenerative change throughout the spine. 4. L2 vertebral body fracture thought to be pathologic on the recent CT study. The other smaller lytic bone lesions seen on the CT abdomen/pelvis exam are not clearly visible radiographically due to its lower sensitivity. A neoplastic etiology such as multiple myeloma remains likely.
[2017-03-13] MEDS: TAMSULOSIN 0.4 MG CAP.ER.24H. PO SCH (16:03)
[2017-03-13] MEDS: PANTOPRAZOLE 40 MG TABLET.DR. PO SCH (16:04)
--- NOTE | 2017-03-13 16:58 | RAD ---
Recommended since bone scan Indication: Lytic lesion on CT. Complaint of low back pain. History of prostate cancer, history of a rib fracture 01/24. Technique: Anterior and posterior planar images of obtained after infusion of 25 mCi of technetium 99m MDP. Comparison: CT abdomen/pelvis from 03/12/2017 and bone survey from 03/13/2017. Findings: Increased uptake of radiopharmaceutical is seen in the right shoulder, right wrist, posterior medial ninth and 10th right ribs and L3 vertebral body. Activity is seen within bilateral kidneys and bladder. Impression: 1. Uptake of radiopharmaceutical in the L3 vertebral body most likely due to fracture. Correlate with biopsy results from the same day. 2. Focal uptake within medial aspect of the right ninth and 10th ribs may be secondary to fracture or degenerative process. 3. Focal uptake within the right shoulder likely degenerative process.
--- NOTE | 2017-03-13 17:23 | RAD ---
CT of the chest without contrast, 03/13/2017: History: Lytic bone lesions, possible malignancy Noncontrast scans were obtained as requested. There is mild calcific plaquing of the thoracic aorta without evidence of aneurysm. Several coronary artery calcifications are present. The heart is not enlarged. No mediastinal adenopathy is seen. Multiple small bilateral axillary lymph nodes are seen without definite pathologic enlargement. There is no evidence of pleural fluid. Bibasilar linear parenchymal opacities are compatible with scarring and/or atelectasis. No pulmonary mass or significant consolidation is seen. Moderate hypertrophic degenerative change is present throughout the thoracic spine. There are faint scattered lucencies within the thoracic vertebral bodies. A more discrete lytic lesion is again noted in the L2 vertebral body on the right, biopsied earlier today. No additional pathologic fracture is seen. IMPRESSION: 1. Mild bibasilar linear scarring and/or atelectasis. 2. Coronary artery calcifications. 3. Faint scattered lucencies in the bony structures again raising the possibility of malignancy such as multiple myeloma versus aggressive bony demineralization. PQRS Compliance Statement: One or more of the following individualized dose reduction techniques were utilized for this examination: 1. Automated exposure control 2. Adjustment of the mA and/or kV according to patient size 3. Use of iterative reconstruction technique
[2017-03-14] MEDS: IV 1/2 NORMAL SALINE 1,000 ML IV SCH ×2 (02:17→17:42)
[2017-03-14 03:00] VITALS: BP 154/84
[2017-03-14 04:40] LABS: CALCIUM 9.3 mg/dL (8.5-10.1); GFR 11.3; POTASSIUM 4.9 mmol/L (3.5-5.1)
[2017-03-14 07:00] VITALS: BP 131/70
[2017-03-14] MEDS: PANTOPRAZOLE 40 MG TABLET.DR. PO SCH (07:54)
[2017-03-14] MEDS: TAMSULOSIN 0.4 MG CAP.ER.24H. PO SCH (08:56)
[2017-03-14] MEDS: POLYETHYLENE GLYCOL 3350 17 GM PACKET. PO SCH (08:57)
--- NOTE | 2017-03-14 09:21 | PDOC ---
PROGRESS NOTES Subjective Subjective HPI - The patient has evidence lytic lesions noted on CT scan of the abdomen and pelvis on 03/12/2017. ROS - back pain better Objective Objective Vital Signs Date Time Temp Pulse Resp B/P (MAP) Pulse Ox O2 Delivery O2 Flow Rate FiO2 03/14/17 07:59 Room Air 03/14/17 07:00 97.9 79 20 131/70 (90) 93 97.9 03/13/17 12:25 3.0 Intake and Output 03/15/17 07:00 Intake Total 236 ml Balance 236 ml Intake Oral 236 ml # Voids 1 # Bowel Movements 1 Physical Exam General: Alert, Oriented X3, No acute distress MUSCULOSKELETAL: No deformity Neck: No JVD Neuro: Normal speech Psych/Mental Status: Mental status NL Assessment Assessment IMPRESSION AND PLAN: 1. Bone lesions. The patient has evidence lytic lesions noted on CT scan of the abdomen and pelvis on 03/12/2017. There is a pathologic fracture at L2 vertebrae. Multiple small bony lucencies are best seen in the spine. Differential diagnosis includes metastatic disease versus multiple myeloma. PSA has been normal at 1.06. CT scan of the abdomen and pelvis on 03/12/17 does not reveal any obvious primary malignancy. CT scan of the chest 03/13/17 is negative for primary for malignancy. Faint scattered lucencies in the bony structures again raising the possibility of malignancy such as multiple myeloma versus aggressive bony demineralization. Bone scan 03/13/17: Uptake of radiopharmaceutical in the L3 vertebral body most likely due to fracture. Focal uptake within medial aspect of the right ninth and 10th ribs may be secondary to fracture or degenerative process. Focal uptake within the right shoulder likely degenerative process. Skeletal survey 03/13/17: Patchy bony demineralization. Several small calvarial lucencies compatible with lytic lesions versus venous lakes. Moderate multilevel degenerative change throughout the spine. L2 vertebral body fracture thought to be pathologic on the recent CT study. The other smaller lytic bone lesions seen on the CT abdomen/pelvis exam are not clearly visible radiographically due to its lower sensitivity. A neoplastic etiology such as multiple myeloma remains likely. s/p L2 bone biopsy today by Interventional Radiology 03/14/17. Serum protein electrophoresis has already been ordered and I added immunofixation studies and serum free light chains. I discussed in detail with the patient regarding the differential diagnosis and the workup needed and he understands and agrees with the plan. I d/w Dr Solo. I d/w Dr Edouard. 2. Normochromic normocytic anemia. Iron studies suggest anemia of chronic disease, B12 and folic acid levels are normal. This could be related to underlying possible malignancy and also renal insufficiency. 3. Leukopenia, likely reactive. Continue to monitor. 4. Renal failure with a creatinine of 5.0 on 03/13/2017 and a BUN of 51. Continue workup per Dr. Edouard. Comment Review of Relevant I have reviewed the following items rupa (where applicable) has been applied. Labs Laboratory Tests Test 03/13/17 04:41 03/13/17 10:52 03/14/17 03:55 Reticulocyte Count (auto) 0.8 % (0.5-2.5) Prothrombin Time 13.5 SEC (11.7-14.0) Prothromb Time International Ratio 1.1 (0.8-1.1) Sodium Level 135 mmol/L (136-145) 139 mmol/L (136-145) Potassium Level 5.1 mmol/L (3.5-5.1) 4.9 mmol/L (3.5-5.1) Chloride Level 102 mmol/L (98-107) 103 mmol/L (98-107) Carbon Dioxide Level 25 mmol/L (21-32) 26 mmol/L (21-32) Anion Gap 8 (6-14) 10 (6-14) Blood Urea Nitrogen 51 mg/dL (8-26) 48 mg/dL (8-26) Creatinine 5.0 mg/dL (0.7-1.3) 5.0 mg/dL (0.7-1.3) Estimated GFR (Cockcroft-Gault) 11.3 11.3 Glucose Level 103 mg/dL (70-99) 127 mg/dL (70-99) Calcium Level 8.9 mg/dL (8.5-10.1) 9.3 mg/dL (8.5-10.1) Ferritin 537 ng/mL (26-388) Iron Level 105 ug/dL (65-175) Total Iron Binding Capacity 237 ug/dL (250-450) Iron Saturation 44 % (15-34) Vitamin B12 Level 379 pg/mL (247-911) Serum Folate 8.42 ng/ml (3.2-20.0) Laboratory Tests Test 03/13/17 10:52 03/14/17 03:55 Iron Level 105 ug/dL (65-175) Total Iron Binding Capacity 237 ug/dL (250-450) Iron Saturation 44 % (15-34) Vitamin B12 Level 379 pg/mL (247-911) Serum Folate 8.42 ng/ml (3.2-20.0) Sodium Level 139 mmol/L (136-145) Potassium Level 4.9 mmol/L (3.5-5.1) Chloride Level 103 mmol/L (98-107) Carbon Dioxide Level 26 mmol/L (21-32) Anion Gap 10 (6-14) Blood Urea Nitrogen 48 mg/dL (8-26) Creatinine 5.0 mg/dL (0.7-1.3) Estimated GFR (Cockcroft-Gault) 11.3 Glucose Level 127 mg/dL (70-99) Calcium Level 9.3 mg/dL (8.5-10.1) Medications Current Medications Acetaminophen/ Hydrocodone Bitart (Lortab 5/325) 1 tab PRN Q4HRS PRN PO PAIN Last administered on 03/12/17 04:48; Start 03/11/17 at 12:30 Tamsulosin HCl (Flomax) 0.4 mg DAILY PO Last administered on 03/14/17 08:56; Start 03/12/17 at 09:00 Pantoprazole Sodium (Protonix) 40 mg DAILYAC PO Last administered on 03/14/17 07:54; Start 03/12/17 at 07:30 Sodium Chloride 1,000 ml @ 125 mls/hr Q8H IV Last administered on 03/14/17 02 :17; Start 03/11/17 at 12:30 Ondansetron HCl (Zofran) 4 mg PRN Q6HRS PRN IV NAUSEA/VOMITING Last administered on 03/12/17 04:51; Start 03/11/17 at 13:15 Polyethylene Glycol (miraLAX PACKET) 17 gm DAILY PO ; Start 03/11/17 at 15:00; Stop 03/13/17 at 17:30; Status DC Iohexol (Omnipaque 240 Mg/ml) 30 ml 1X ONCE PO Last administered on 03/12/17 10:43; Start 03/12/17 at 09:00; Stop 03/12/17 at 09:05; Status DC Info (Do NOT chart on this entry -- for MONITORING) 1 each PRN DAILY PRN MC SEE COMMENTS; Start 03/12/17 at 09:15; Stop 03/14/17 at 09:14 Polyethylene Glycol (miraLAX PACKET) 17 gm DAILY PO ; Start 03/12/17 at 17:00 Lidocaine/Sodium Bicarbonate (Buffered Lidocaine 1%) 20 ml 1X ONCE IJ Last administered on 03/13/17 12:23; Start 03/13/17 at 11:15; Stop 03/13/17 at 11:16 ; Status DC Midazolam HCl (Versed) 2 mg 1X ONCE IV Last administered on 03/13/17 12:24; Start 03/13/17 at 11:15; Stop 03/13/17 at 11:16; Status DC Fentanyl Citrate (Fentanyl 2ml Vial) 100 mcg 1X ONCE IV Last administered on 03/13/17 12:24; Start 03/13/17 at 11:15; Stop 03/13/17 at 11:16; Status DC Lidocaine/Sodium Bicarbonate (Buffered Lidocaine 1%) 20 ml STK-MED ONCE IJ ; Start 03/13/17 at 11:11; Stop 03/13/17 at 11:12; Status DC Fentanyl Citrate (Fentanyl 2ml Vial) 100 mcg STK-MED ONCE .ROUTE ; Start at 11:11; Stop 03/13/17 at 11:12; Status DC Midazolam HCl (Versed) 2 mg STK-MED ONCE .ROUTE ; Start 03/13/17 at 11:11; Stop 03/13/17 at 11:12; Status DC Bisacodyl (Dulcolax Tab) 10 mg PRN DAILY PRN PO CONSTIPATION; Start 03/13/17 at 11:30 Active Scripts Active Reported Flomax (Tamsulosin Hcl) 0.4 Mg Cap.er.24h 1 Cap PO DAILY Hydrocodone-Apap 5-325 (Hydrocodone Bit/Acetaminophen) 1 Each Tablet 1 Tab PO PRN Q4HRS PRN Vitals/I & O Vital Sign - Last 24 Hours 03/13/17 03/13/17 03/13/17 03/13/17 10:53 12:24 12:25 15:00 Temp 98.3 98.0 98.3 98.0 Pulse 87 95 99 Resp 18 18 18 18 B/P (MAP) 163/83 (109) 144/83 (103) Pulse Ox 93 97 95 97 O2 Delivery Room Air Nasal Cannula Nasal Cannula Room Air O2 Flow Rate 3.0 3.0 03/13/17 03/13/17 03/13/17 03/14/17 19:00 19:49 23:00 03:00 Temp 97.9 98.1 97.9 97.9 98.1 97.9 Pulse 95 83 81 Resp 19 18 20 B/P (MAP) 153/84 (107) 168/79 (108) 154/84 (107) Pulse Ox 94 92 93 O2 Delivery Room Air Room Air Room Air Room Air 03/14/17 03/14/17 07:00 07:59 Temp 97.9 97.9 Pulse 79 Resp 20 B/P (MAP) 131/70 (90) Pulse Ox 93 O2 Delivery Room Air Room Air Intake and Output 03/14/17 03/14/17 03/15/17 15:00 23:00 07:00 Intake Total 236 ml Balance 236 ml MICHAEL CEJA MD Mar 14, 2017 09:21
[2017-03-14 11:00] VITALS: BP 135/67
--- NOTE | 2017-03-14 12:03 | PDOC ---
Renal-Progress Notes Subjective Notes Notes NO NEW COMPLAINTS History of Present Illness Hx of present illness STABLE Vitals Vitals Vital Signs Date Time Temp Pulse Resp B/P (MAP) Pulse Ox O2 Delivery O2 Flow Rate FiO2 03/14/17 11:00 98.1 89 18 135/67 (89) 92 Room Air 98.1 03/13/17 12:25 3.0 Weight Weight [ ] I.O. Intake and Output Intake and Output 03/15/17 07:00 Intake Total 586 ml Balance 586 ml Intake Oral 586 ml # Voids 2 # Bowel Movements 1 Labs Labs Laboratory Tests Test 03/14/17 03:55 Sodium Level 139 mmol/L (136-145) Potassium Level 4.9 mmol/L (3.5-5.1) Chloride Level 103 mmol/L (98-107) Carbon Dioxide Level 26 mmol/L (21-32) Anion Gap 10 (6-14) Blood Urea Nitrogen 48 mg/dL (8-26) Creatinine 5.0 mg/dL (0.7-1.3) Estimated GFR (Cockcroft-Gault) 11.3 Glucose Level 127 mg/dL (70-99) Calcium Level 9.3 mg/dL (8.5-10.1) Review of Systems Constitutional: yes: malaise, weakness, alert, oriented Ears/Nose/Throat: Yes: no symptom reported Eyes: Yes: no symptom reported Pulmonary: Yes no symptom reported Cardiovascular: Yes no symptom reported Gastrointestional: Yes: no symptom reported Genitourinary: Yes: no symptom reported Musculoskeletal: Yes: back pain Endocrine: Yes: no symptom reported Physical Exam General Appearance: no apparent distress Skin: warm Respiratory: bilateral CTA Heart: S1S2 Abdomen: soft, bowel sounds present Genitourinary: bladder flat Extremities: pulses present Neurology: alert, oriented Assessment Assessment IMP LISETTE WITH CR UP TO 5.0-NON OLIGURIC ATN CKD STAGE 2 MOST LIKELY WITH CR OF 1.3 IN SEPTEMBER THIS YEAR HX OF PROSTATE CANCER ? MET SPINE LESION VS MULTIPLE MYELOMA DEHYDRATION HTN BPH PLAN CONT TO AVOID NSAIDS CONT WITH IVF'S BONE MARROW BIOPSY LABS IN AM EXPECT IMPROVEMENT IN RENAL FUNCTION IN NEXT DAY OR SO ELMIRA DUNCAN MD Mar 14, 2017 12:03
--- NOTE | 2017-03-14 12:31 | PDOC ---
Subjective: Subjective: GI-calvin feels well. Eating and stooling w/o pain. Objective: Vital Signs: Vital Signs Date Time Temp Pulse Resp B/P (MAP) Pulse Ox O2 Delivery O2 Flow Rate FiO2 03/14/17 11:00 98.1 89 18 135/67 (89) 92 Room Air 98.1 03/13/17 12:25 3.0 Labs: Laboratory Tests Test 03/14/17 03:55 Sodium Level 139 mmol/L Potassium Level 4.9 mmol/L Chloride Level 103 mmol/L Carbon Dioxide Level 26 mmol/L Anion Gap 10 Blood Urea Nitrogen 48 mg/dL Creatinine 5.0 mg/dL Estimated GFR (Cockcroft-Gault) 11.3 Glucose Level 127 mg/dL Calcium Level 9.3 mg/dL Imaging: Metastatic Series IMPRESSION: 1. Patchy bony demineralization. 2. Several small calvarial lucencies compatible with lytic lesions versus venous lakes. 3. Moderate multilevel degenerative change throughout the spine. 4. L2 vertebral body fracture thought to be pathologic on the recent CT study. The other smaller lytic bone lesions seen on the CT abdomen/pelvis exam are not clearly visible radiographically due to its lower sensitivity. A neoplastic etiology such as multiple myeloma remains likely. Bone Scan Impression: 1. Uptake of radiopharmaceutical in the L3 vertebral body most likely due to fracture. Correlate with biopsy results from the same day. 2. Focal uptake within medial aspect of the right ninth and 10th ribs may be secondary to fracture or degenerative process. 3. Focal uptake within the right shoulder likely degenerative process. CT Chest IMPRESSION: 1. Mild bibasilar linear scarring and/or atelectasis. 2. Coronary artery calcifications. 3. Faint scattered lucencies in the bony structures again raising the possibility of malignancy such as multiple myeloma versus aggressive bony demineralization. PE: GEN: NAD LUNGS: clear HEART: RRR ABD: obese, soft, non-tender NEURO/PSYCH: A & O 3 A/P: Abnormal CT -s/p L2 biopsy -h/o prostate cancer s/p radiation Abd pain, nausea, constipation - resolved -on PPI, Miralax, Dulcolax -colonoscopy ~5 years ago LISETTE/CKD -per nephrology, Cr 5 Anemia -- Stable GI-calvin. Continue per heme/onc and renal. FABIO SUTHERLAND Mar 14, 2017 12:31
[2017-03-14 14:57] VITALS: BP 159/83
--- NOTE | 2017-03-14 17:02 | PDOC ---
Provider Note Provider Note ADDENDUM: Elevated kappa light chains suggest myeloma - plan Bone marrow bx MICHAEL CEJA MD Mar 14, 2017 17:02
[2017-03-14 19:00] VITALS: BP 180/88
--- NOTE | 2017-03-14 22:04 | PDOC ---
GENERAL General: vss and afebrile. awake and alert and abdominal pain much improved and believes back may feel little better after biopsy. chest clear, heart regular, and abdomen benign. bone scan noted. elevated kappa light chains on electrophoresis suggesting myeloma as process. bone marrow ordered for tomorrow. Problems: VITAL SIGNS Vital Signs: Vital Signs Date Time Temp Pulse Resp B/P (MAP) Pulse Ox O2 Delivery O2 Flow Rate FiO2 03/14/17 19:00 97.9 90 22 180/88 (118) 95 Room Air 97.9 03/13/17 12:25 3.0 I & O I & O Intake and Output 03/15/17 07:00 Intake Total 2022 ml Output Total 950 ml Balance 1072 ml Intake Oral 2022 ml Output Urine Total 950 ml # Voids 2 # Bowel Movements 1 ALLERGIES Allergies: Allergies Coded Allergies Type Severity Reaction Last Updated Verified No Known Medication Allergies Allergy Intermediate 03/11/17 Yes MEDS Medications: Current Medications Medications (Trade) Dose Ordered Sig/Broderick Start Time Stop Time Status Last Admin Dose Admin Acetaminophen/ Hydrocodone Bitart (Lortab 5/325) 1 tab PRN Q4HRS PRN 03/11/17 12:30 03/12/17 04:48 1 TAB Bisacodyl (Dulcolax Tab) 10 mg PRN DAILY PRN 03/13/17 11:30 Fentanyl Citrate (Fentanyl 2ml Vial) 100 mcg STK-MED ONCE 03/13/17 11:11 03/13/17 11:12 DC Info (Do NOT chart on this entry -- for MONITORING) 1 each PRN DAILY PRN 03/12/17 09:15 03/14/17 09:14 DC Iohexol (Omnipaque 240 Mg/ml) 30 ml 1X ONCE 03/12/17 09:00 03/12/17 09:05 DC 03/12/17 10:43 30 ML Lidocaine/Sodium Bicarbonate (Buffered Lidocaine 1%) 20 ml STK-MED ONCE 03/13/17 11:11 03/13/17 11:12 DC Midazolam HCl (Versed) 2 mg STK-MED ONCE 03/13/17 11:11 03/13/17 11:12 DC Ondansetron HCl (Zofran) 4 mg PRN Q6HRS PRN 03/11/17 13:15 03/12/17 04:51 4 MG Pantoprazole Sodium (Protonix) 40 mg DAILYAC 03/12/17 07:30 03/14/17 07:54 40 MG Polyethylene Glycol (miraLAX PACKET) 17 gm DAILY 03/12/17 17:00 Sodium Chloride 1,000 ml @ 125 mls/hr Q8H 03/11/17 12:30 03/14/17 17:42 125 MLS/HR Tamsulosin HCl (Flomax) 0.4 mg DAILY 03/12/17 09:00 03/14/17 08:56 0.4 MG LAB Lab: Laboratory Tests Test 03/14/17 03:55 Sodium Level 139 mmol/L (136-145) Potassium Level 4.9 mmol/L (3.5-5.1) Chloride Level 103 mmol/L (98-107) Carbon Dioxide Level 26 mmol/L (21-32) Anion Gap 10 (6-14) Blood Urea Nitrogen 48 mg/dL (8-26) Creatinine 5.0 mg/dL (0.7-1.3) Estimated GFR (Cockcroft-Gault) 11.3 Glucose Level 127 mg/dL (70-99) Calcium Level 9.3 mg/dL (8.5-10.1) APPLSIMA MD Mar 14, 2017 22:04
[2017-03-14 23:00] VITALS: BP 149/75
[2017-03-14] MEDS: ONDANSETRON PF 4 MG/2 ML VIAL. IV PRN (23:07)
[2017-03-15] VITALS (12 sets, daily range): BP systolic 123–187; BP diastolic 54–100
[2017-03-15] MEDS: IV 1/2 NORMAL SALINE 1,000 ML IV SCH ×3 (01:56→14:06)
[2017-03-15 04:45] LABS: BASO % 1 % (0-3); EOS % 6 % (0-3); HEMATOCRIT 30.2 % (39.0-53.0); HEMOGLOBIN 10.1 g/dL (13.0-17.5); LYMPH % 53 % (24-48); MEAN CORPUSCULAR HEMOGLOBIN 31 pg (25-35); MEAN CORPUSCULAR HGB CONC 34 g/dL (31-37); MEAN CORPUSCULAR VOLUME 91 fL (79-100); MONO % 2 % (0-9); NEUT % 39 % (31-73); PLATELET COUNT 170 x10^3/uL (140-400); RED BLOOD COUNT 3.31 x10^6/uL (4.30-5.70); RED CELL DISTRIBUTION WIDTH 15.9 % (11.5-14.5)
[2017-03-15 04:48] LABS: WHITE BLOOD COUNT 1.9 x10^3/uL (4.0-11.0)
[2017-03-15 04:59] LABS: CREATININE 4.7 mg/dL (0.7-1.3); GFR 12.1
[2017-03-15] MEDS: HYDROcodone/APAP 5/325MG 1 TAB TABLET PO PRN ×2 (05:40→20:42)
--- NOTE | 2017-03-15 07:58 | PDOC ---
GENERAL General: vss and afebrile. awake and alert. discussed diagnosis of myeloma with patient. exam stable. for bone marrow biopsy today with plans to follow. dc timing per oncology. wbc only 1900 this am related to underlying problem. [place] [facility] [place] and may be better served to get definitive treatment closer to home. renal function stable and will hopefully improve with treatment of myeloma. Problems: VITAL SIGNS Vital Signs: Vital Signs Date Time Temp Pulse Resp B/P (MAP) Pulse Ox O2 Delivery O2 Flow Rate FiO2 03/15/17 07:00 98.8 89 18 146/70 (95) 92 Room Air 98.8 ALLERGIES Allergies: Allergies Coded Allergies Type Severity Reaction Last Updated Verified No Known Medication Allergies Allergy Intermediate 03/11/17 Yes MEDS Medications: Current Medications Medications (Trade) Dose Ordered Sig/Broderick Start Time Stop Time Status Last Admin Dose Admin Acetaminophen/ Hydrocodone Bitart (Lortab 5/325) 1 tab PRN Q4HRS PRN 03/11/17 12:30 03/15/17 05:40 1 TAB Bisacodyl (Dulcolax Tab) 10 mg PRN DAILY PRN 03/13/17 11:30 Fentanyl Citrate (Fentanyl 2ml Vial) 100 mcg STK-MED ONCE 03/13/17 11:11 03/13/17 11:12 DC Info (Do NOT chart on this entry -- for MONITORING) 1 each PRN DAILY PRN 03/12/17 09:15 03/14/17 09:14 DC Iohexol (Omnipaque 240 Mg/ml) 30 ml 1X ONCE 03/12/17 09:00 03/12/17 09:05 DC 03/12/17 10:43 30 ML Lidocaine/Sodium Bicarbonate (Buffered Lidocaine 1%) 20 ml STK-MED ONCE 03/13/17 11:11 03/13/17 11:12 DC Midazolam HCl (Versed) 2 mg STK-MED ONCE 03/13/17 11:11 03/13/17 11:12 DC Ondansetron HCl (Zofran) 4 mg PRN Q6HRS PRN 03/11/17 13:15 03/14/17 23:07 4 MG Pantoprazole Sodium (Protonix) 40 mg DAILYAC 03/12/17 07:30 03/14/17 07:54 40 MG Polyethylene Glycol (miraLAX PACKET) 17 gm DAILY 03/12/17 17:00 Sodium Chloride 1,000 ml @ 125 mls/hr Q8H 03/11/17 12:30 03/15/17 01:56 125 MLS/HR Tamsulosin HCl (Flomax) 0.4 mg DAILY 03/12/17 09:00 03/14/17 08:56 0.4 MG LAB Lab: Laboratory Tests Test 03/15/17 04:29 White Blood Count 1.9 x10^3/uL (4.0-11.0) Red Blood Count 3.31 x10^6/uL (4.30-5.70) Hemoglobin 10.1 g/dL (13.0-17.5) Hematocrit 30.2 % (39.0-53.0) Mean Corpuscular Volume 91 fL (79-100) Mean Corpuscular Hemoglobin 31 pg (25-35) Mean Corpuscular Hemoglobin Concent 34 g/dL (31-37) Red Cell Distribution Width 15.9 % (11.5-14.5) Platelet Count 170 x10^3/uL (140-400) Neutrophils (%) (Auto) 39 % (31-73) Lymphocytes (%) (Auto) 53 % (24-48) Monocytes (%) (Auto) 2 % (0-9) Eosinophils (%) (Auto) 6 % (0-3) Basophils (%) (Auto) 1 % (0-3) Neutrophils # (Auto) 0.7 x10^3uL (1.8-7.7) Lymphocytes # (Auto) 1.0 x10^3/uL (1.0-4.8) Monocytes # (Auto) 0.0 x10^3/uL (0.0-1.1) Eosinophils # (Auto) 0.1 x10^3/uL (0.0-0.7) Basophils # (Auto) 0.0 x10^3/uL (0.0-0.2) Sodium Level 139 mmol/L (136-145) Potassium Level 5.0 mmol/L (3.5-5.1) Chloride Level 105 mmol/L (98-107) Carbon Dioxide Level 27 mmol/L (21-32) Anion Gap 7 (6-14) Blood Urea Nitrogen 42 mg/dL (8-26) Creatinine 4.7 mg/dL (0.7-1.3) Estimated GFR (Cockcroft-Gault) 12.1 Glucose Level 107 mg/dL (70-99) Calcium Level 9.0 mg/dL (8.5-10.1) SIMA MICHAUD MD Mar 15, 2017 07:58
--- NOTE | 2017-03-15 09:32 | PDOC1 ---
IR Pre-Procedure H&P H&P Update Lab findings suggestive of multiple myeloma. Otherwise, no significant change from Dr. Edouard admit H&P done 03/11/17. EUGENIE REYNA MD Mar 15, 2017 09:32
[2017-03-15] MEDS ORDERED: LIDOCAINE 1% / SOD BICARB 8.4% 20 ML VIAL. IJ ONE ×2 (10:41→11:30)
[2017-03-15] MEDS ORDERED: FLUMAZENIL 0.5 MG/5 ML VIAL. IV ONE (10:57)
[2017-03-15] MEDS ORDERED: fentaNYL PF VIAL 250 MCG/5 ML VIAL ONE (10:57)
[2017-03-15] MEDS ORDERED: MIDAZOLAM HCL/PF 5 MG/5 ML VIAL. ONE (10:57)
[2017-03-15] MEDS ORDERED: NALOXONE 0.4 MG/ML VIAL. ONE (10:57)
[2017-03-15 11:01] LABS: % BLASTS 8 % (0-0)
[2017-03-15 11:02] LABS: PLT ESTIMATE ADEQUATE (ADEQUATE)
--- NOTE | 2017-03-15 11:21 | PDOC ---
Exam Field Service Engineer Field Service Engineer Mya Chain Saw Operator Chain Saw Operator None Pre-Procedure Diagnosis Pre-Procedure Diagnosis Multiple myeloma Post-Procedure Diagnosis Post-Procedure Diagnosis Same Procedure Performed Procedure Performed Bone marrow biopsy Type of Anesthesia Type of Anesthesia Moderate Estimated Blood Loss EBL: 10 cc Specimens Specimans Aspirate and core Drain/Tubes Drains/Tubes None Condition of Patient Condition of Patient Stable EUGENIE REYNA MD Mar 15, 2017 11:21
--- NOTE | 2017-03-15 11:25 | PDOC ---
PROGRESS NOTES Subjective Subjective HPI - The patient has evidence lytic lesions noted on CT scan of the abdomen and pelvis on 03/12/2017. There is a pathologic fracture at L2 vertebrae. Multiple small bony lucencies are best seen in the spine. ROS - back pain better Objective Objective Vital Signs Date Time Temp Pulse Resp B/P (MAP) Pulse Ox O2 Delivery O2 Flow Rate FiO2 03/15/17 07:00 98.8 89 18 146/70 (95) 92 Room Air 98.8 03/13/17 12:25 3.0 Intake and Output 03/16/17 07:00 Output Total 510 ml Balance -510 ml Output Urine Total 510 ml Physical Exam Heart: Normal S1, Normal S2 General: Alert, Oriented X3 Lungs: Clear to auscultation Neuro: Normal speech Psych/Mental Status: Mental status NL Assessment Assessment IMPRESSION AND PLAN: 1. Multiple Myeloma clinical diagnosis - Bone lesions. The patient has evidence lytic lesions noted on CT scan of the abdomen and pelvis on 03/12/2017. There is a pathologic fracture at L2 vertebrae. Multiple small bony lucencies are best seen in the spine. PSA has been normal at 1.06. CT scan of the abdomen and pelvis on 03/12/17 does not reveal any obvious primary malignancy. CT scan of the chest 03/13/17 is negative for primary for malignancy. Faint scattered lucencies in the bony structures again raising the possibility of malignancy such as multiple myeloma versus aggressive bony demineralization. Bone scan 03/13/17: Uptake of radiopharmaceutical in the L3 vertebral body most likely due to fracture. Focal uptake within medial aspect of the right ninth and 10th ribs may be secondary to fracture or degenerative process. Focal uptake within the right shoulder likely degenerative process. Skeletal survey 03/13/17: Patchy bony demineralization. Several small calvarial lucencies compatible with lytic lesions versus venous lakes. Moderate multilevel degenerative change throughout the spine. L2 vertebral body fracture thought to be pathologic on the recent CT study. The other smaller lytic bone lesions seen on the CT abdomen/pelvis exam are not clearly visible radiographically due to its lower sensitivity. A neoplastic etiology such as multiple myeloma remains likely. s/p L2 bone biopsy by Interventional Radiology 03/14/17. Serum protein electrophoresis has already been ordered and I added immunofixation studies and serum free light chains. Plan bone marrow bx 03/15/17. I discussed in detail with the patient and his regarding the clinical diagnosis of multiple myeloma and the workup needed and he understands and agrees with the plan. I d/w Dr Solo. I will start Decadron 40 mg daily x 4 days from 03/15/17 after bone marrow bx. He can be discharged 03/16/17 and f/u with me 03/18/17. 2. Normochromic normocytic anemia. Iron studies suggest anemia of chronic disease, B12 and folic acid levels are normal. This could be related to underlying possible malignancy and also renal insufficiency. 3. Leukopenia, likely reactive. Continue to monitor. 4. Renal failure with a creatinine of 5.0 on 03/13/2017 and a BUN of 51. Continue workup per Dr. Edouard. Comment Review of Relevant I have reviewed the following items rupa (where applicable) has been applied. Labs Laboratory Tests Test 03/14/17 03:55 03/15/17 04:29 Sodium Level 139 mmol/L (136-145) 139 mmol/L (136-145) Potassium Level 4.9 mmol/L (3.5-5.1) 5.0 mmol/L (3.5-5.1) Chloride Level 103 mmol/L (98-107) 105 mmol/L (98-107) Carbon Dioxide Level 26 mmol/L (21-32) 27 mmol/L (21-32) Anion Gap 10 (6-14) 7 (6-14) Blood Urea Nitrogen 48 mg/dL (8-26) 42 mg/dL (8-26) Creatinine 5.0 mg/dL (0.7-1.3) 4.7 mg/dL (0.7-1.3) Estimated GFR (Cockcroft-Gault) 11.3 12.1 Glucose Level 127 mg/dL (70-99) 107 mg/dL (70-99) Calcium Level 9.3 mg/dL (8.5-10.1) 9.0 mg/dL (8.5-10.1) White Blood Count 1.9 x10^3/uL (4.0-11.0) Red Blood Count 3.31 x10^6/uL (4.30-5.70) Hemoglobin 10.1 g/dL (13.0-17.5) Hematocrit 30.2 % (39.0-53.0) Mean Corpuscular Volume 91 fL (79-100) Mean Corpuscular Hemoglobin 31 pg (25-35) Mean Corpuscular Hemoglobin Concent 34 g/dL (31-37) Red Cell Distribution Width 15.9 % (11.5-14.5) Platelet Count 170 x10^3/uL (140-400) Neutrophils (%) (Auto) 39 % (31-73) Lymphocytes (%) (Auto) 53 % (24-48) Monocytes (%) (Auto) 2 % (0-9) Eosinophils (%) (Auto) 6 % (0-3) Basophils (%) (Auto) 1 % (0-3) Neutrophils # (Auto) 0.7 x10^3uL (1.8-7.7) Lymphocytes # (Auto) 1.0 x10^3/uL (1.0-4.8) Monocytes # (Auto) 0.0 x10^3/uL (0.0-1.1) Eosinophils # (Auto) 0.1 x10^3/uL (0.0-0.7) Basophils # (Auto) 0.0 x10^3/uL (0.0-0.2) Segmented Neutrophils % 33 % (35-66) Band Neutrophils % 9 % (0-9) Atypical Lymphocytes % (Manual) 5 % (0-0) Blast Cells % (Manual) 8 % (0-0) Platelet Estimate Adequate (ADEQUATE) Laboratory Tests Test 03/15/17 04:29 White Blood Count 1.9 x10^3/uL (4.0-11.0) Red Blood Count 3.31 x10^6/uL (4.30-5.70) Hemoglobin 10.1 g/dL (13.0-17.5) Hematocrit 30.2 % (39.0-53.0) Mean Corpuscular Volume 91 fL (79-100) Mean Corpuscular Hemoglobin 31 pg (25-35) Mean Corpuscular Hemoglobin Concent 34 g/dL (31-37) Red Cell Distribution Width 15.9 % (11.5-14.5) Platelet Count 170 x10^3/uL (140-400) Neutrophils (%) (Auto) 39 % (31-73) Lymphocytes (%) (Auto) 53 % (24-48) Monocytes (%) (Auto) 2 % (0-9) Eosinophils (%) (Auto) 6 % (0-3) Basophils (%) (Auto) 1 % (0-3) Neutrophils # (Auto) 0.7 x10^3uL (1.8-7.7) Lymphocytes # (Auto) 1.0 x10^3/uL (1.0-4.8) Monocytes # (Auto) 0.0 x10^3/uL (0.0-1.1) Eosinophils # (Auto) 0.1 x10^3/uL (0.0-0.7) Basophils # (Auto) 0.0 x10^3/uL (0.0-0.2) Segmented Neutrophils % 33 % (35-66) Band Neutrophils % 9 % (0-9) Atypical Lymphocytes % (Manual) 5 % (0-0) Blast Cells % (Manual) 8 % (0-0) Platelet Estimate Adequate (ADEQUATE) Sodium Level 139 mmol/L (136-145) Potassium Level 5.0 mmol/L (3.5-5.1) Chloride Level 105 mmol/L (98-107) Carbon Dioxide Level 27 mmol/L (21-32) Anion Gap 7 (6-14) Blood Urea Nitrogen 42 mg/dL (8-26) Creatinine 4.7 mg/dL (0.7-1.3) Estimated GFR (Cockcroft-Gault) 12.1 Glucose Level 107 mg/dL (70-99) Calcium Level 9.0 mg/dL (8.5-10.1) Medications Current Medications Acetaminophen/ Hydrocodone Bitart (Lortab 5/325) 1 tab PRN Q4HRS PRN PO PAIN Last administered on 03/15/17 05:40; Start 03/11/17 at 12:30 Tamsulosin HCl (Flomax) 0.4 mg DAILY PO Last administered on 03/14/17 08:56; Start 03/12/17 at 09:00 Pantoprazole Sodium (Protonix) 40 mg DAILYAC PO Last administered on 03/14/17 07:54; Start 03/12/17 at 07:30 Sodium Chloride 1,000 ml @ 125 mls/hr Q8H IV Last administered on 03/15/17 09 :47; Start 03/11/17 at 12:30 Ondansetron HCl (Zofran) 4 mg PRN Q6HRS PRN IV NAUSEA/VOMITING Last administered on 03/14/17 23:07; Start 03/11/17 at 13:15 Polyethylene Glycol (miraLAX PACKET) 17 gm DAILY PO ; Start 03/11/17 at 15:00; Stop 03/13/17 at 17:30; Status DC Iohexol (Omnipaque 240 Mg/ml) 30 ml 1X ONCE PO Last administered on 03/12/17 10:43; Start 03/12/17 at 09:00; Stop 03/12/17 at 09:05; Status DC Info (Do NOT chart on this entry -- for MONITORING) 1 each PRN DAILY PRN MC SEE COMMENTS; Start 03/12/17 at 09:15; Stop 03/14/17 at 09:14; Status DC Polyethylene Glycol (miraLAX PACKET) 17 gm DAILY PO ; Start 03/12/17 at 17:00 Lidocaine/Sodium Bicarbonate (Buffered Lidocaine 1%) 20 ml 1X ONCE IJ Last administered on 03/13/17 12:23; Start 03/13/17 at 11:15; Stop 03/13/17 at 11:16 ; Status DC Midazolam HCl (Versed) 2 mg 1X ONCE IV Last administered on 03/13/17 12:24; Start 03/13/17 at 11:15; Stop 03/13/17 at 11:16; Status DC Fentanyl Citrate (Fentanyl 2ml Vial) 100 mcg 1X ONCE IV Last administered on 03/13/17 12:24; Start 03/13/17 at 11:15; Stop 03/13/17 at 11:16; Status DC Lidocaine/Sodium Bicarbonate (Buffered Lidocaine 1%) 20 ml STK-MED ONCE IJ ; Start 03/13/17 at 11:11; Stop 03/13/17 at 11:12; Status DC Fentanyl Citrate (Fentanyl 2ml Vial) 100 mcg STK-MED ONCE .ROUTE ; Start at 11:11; Stop 03/13/17 at 11:12; Status DC Midazolam HCl (Versed) 2 mg STK-MED ONCE .ROUTE ; Start 03/13/17 at 11:11; Stop 03/13/17 at 11:12; Status DC Bisacodyl (Dulcolax Tab) 10 mg PRN DAILY PRN PO CONSTIPATION; Start 03/13/17 at 11:30 Lidocaine/Sodium Bicarbonate (Buffered Lidocaine 1%) 20 ml STK-MED ONCE IJ ; Start 03/15/17 at 10:41; Stop 03/15/17 at 10:42; Status DC Midazolam HCl (Versed) 5 mg STK-MED ONCE .ROUTE ; Start 03/15/17 at 10:57; Stop 03/15/17 at 10:58; Status DC Fentanyl Citrate (Fentanyl 5ml Vial) 250 mcg STK-MED ONCE .ROUTE ; Start at 10:57; Stop 03/15/17 at 10:58; Status DC Flumazenil (Romazicon) 0.5 mg STK-MED ONCE IV ; Start 03/15/17 at 10:57; Stop 03/15/17 at 10:58; Status DC Naloxone HCl (Narcan) 0.4 mg STK-MED ONCE .ROUTE ; Start 03/15/17 at 10:57; Stop 03/15/17 at 10:58; Status DC Active Scripts Active Reported Flomax (Tamsulosin Hcl) 0.4 Mg Cap.er.24h 1 Cap PO DAILY Hydrocodone-Apap 5-325 (Hydrocodone Bit/Acetaminophen) 1 Each Tablet 1 Tab PO PRN Q4HRS PRN Vitals/I & O Vital Sign - Last 24 Hours 03/14/17 03/14/17 03/14/17 03/14/17 14:57 19:00 19:55 23:00 Temp 97.7 97.9 97.9 97.7 97.9 97.9 Pulse 85 90 84 Resp 18 22 19 B/P (MAP) 159/83 (108) 180/88 (118) 149/75 (99) Pulse Ox 92 95 93 O2 Delivery Room Air Room Air Room Air Room Air 03/15/17 03/15/17 03/15/17 03/15/17 03:00 05:40 06:45 07:00 Temp 97.9 98.8 97.9 98.8 Pulse 86 89 Resp 21 18 B/P (MAP) 155/68 (97) 146/70 (95) Pulse Ox 93 92 O2 Delivery Room Air Room Air Room Air Room Air Intake and Output 03/15/17 03/15/17 03/16/17 15:00 23:00 07:00 Output Total 510 ml Balance -510 ml MICHAEL CEJA MD Mar 15, 2017 11:25
[2017-03-15] MEDS ORDERED: MIDAZOLAM HCL/PF 5 MG/5 ML VIAL. IV ONE (11:30)
[2017-03-15] MEDS ORDERED: fentaNYL PF VIAL 250 MCG/5 ML VIAL IV ONE (11:30)
--- NOTE | 2017-03-15 11:31 | PDOC ---
Renal-Progress Notes Subjective Notes Notes NO NEW COMPLAINTS History of Present Illness Hx of present illness STABLE Vitals Vitals Vital Signs Date Time Temp Pulse Resp B/P (MAP) Pulse Ox O2 Delivery O2 Flow Rate FiO2 03/15/17 11:25 16 96 Room Air 03/15/17 11:20 98 03/15/17 11:00 98.1 146/80 (102) 98.1 Weight Weight [ ] I.O. Intake and Output Intake and Output 03/16/17 07:00 Output Total 510 ml Balance -510 ml Output Urine Total 510 ml Labs Labs Laboratory Tests Test 03/15/17 04:29 White Blood Count 1.9 x10^3/uL (4.0-11.0) Red Blood Count 3.31 x10^6/uL (4.30-5.70) Hemoglobin 10.1 g/dL (13.0-17.5) Hematocrit 30.2 % (39.0-53.0) Mean Corpuscular Volume 91 fL (79-100) Mean Corpuscular Hemoglobin 31 pg (25-35) Mean Corpuscular Hemoglobin Concent 34 g/dL (31-37) Red Cell Distribution Width 15.9 % (11.5-14.5) Platelet Count 170 x10^3/uL (140-400) Neutrophils (%) (Auto) 39 % (31-73) Lymphocytes (%) (Auto) 53 % (24-48) Monocytes (%) (Auto) 2 % (0-9) Eosinophils (%) (Auto) 6 % (0-3) Basophils (%) (Auto) 1 % (0-3) Neutrophils # (Auto) 0.7 x10^3uL (1.8-7.7) Lymphocytes # (Auto) 1.0 x10^3/uL (1.0-4.8) Monocytes # (Auto) 0.0 x10^3/uL (0.0-1.1) Eosinophils # (Auto) 0.1 x10^3/uL (0.0-0.7) Basophils # (Auto) 0.0 x10^3/uL (0.0-0.2) Segmented Neutrophils % 33 % (35-66) Band Neutrophils % 9 % (0-9) Atypical Lymphocytes % (Manual) 5 % (0-0) Blast Cells % (Manual) 8 % (0-0) Platelet Estimate Adequate (ADEQUATE) Sodium Level 139 mmol/L (136-145) Potassium Level 5.0 mmol/L (3.5-5.1) Chloride Level 105 mmol/L (98-107) Carbon Dioxide Level 27 mmol/L (21-32) Anion Gap 7 (6-14) Blood Urea Nitrogen 42 mg/dL (8-26) Creatinine 4.7 mg/dL (0.7-1.3) Estimated GFR (Cockcroft-Gault) 12.1 Glucose Level 107 mg/dL (70-99) Calcium Level 9.0 mg/dL (8.5-10.1) Review of Systems Constitutional: yes: malaise, weakness, alert, oriented Ears/Nose/Throat: Yes: no symptom reported Eyes: Yes: no symptom reported Pulmonary: Yes no symptom reported Cardiovascular: Yes no symptom reported Gastrointestional: Yes: no symptom reported Genitourinary: Yes: no symptom reported Musculoskeletal: Yes: back pain Endocrine: Yes: no symptom reported Physical Exam General Appearance: no apparent distress Skin: warm Respiratory: bilateral CTA Heart: S1S2 Abdomen: soft, bowel sounds present Genitourinary: bladder flat Extremities: pulses present Neurology: alert, oriented Assessment Assessment IMP LISETTE WITH CR DOWN TO 4.7-NON OLIGURIC ATN CKD STAGE 2 MOST LIKELY WITH CR OF 1.3 IN SEPTEMBER THIS YEAR HX OF PROSTATE CANCER ? MULTIPLE MYELOMA DEHYDRATION HTN BPH PLAN CONT TO AVOID NSAIDS CONT WITH IVF'S BONE MARROW BIOPSY LABS IN AM EXPECT IMPROVEMENT IN RENAL FUNCTION IN NEXT DAY OR SO CHECK 24 HR URINE ELMIRA DUNCAN MD Mar 15, 2017 11:31
--- NOTE | 2017-03-15 11:40 | PDOC ---
Objective: Objective: Out of room. Vital Signs: Vital Signs Date Time Temp Pulse Resp B/P (MAP) Pulse Ox O2 Delivery O2 Flow Rate FiO2 03/15/17 11:25 16 96 Room Air 03/15/17 11:20 98 03/15/17 11:00 98.1 146/80 (102) 98.1 Labs: Laboratory Tests Test 03/15/17 04:29 White Blood Count 1.9 x10^3/uL Red Blood Count 3.31 x10^6/uL Hemoglobin 10.1 g/dL Hematocrit 30.2 % Mean Corpuscular Volume 91 fL Mean Corpuscular Hemoglobin 31 pg Mean Corpuscular Hemoglobin Concent 34 g/dL Red Cell Distribution Width 15.9 % Platelet Count 170 x10^3/uL Neutrophils (%) (Auto) 39 % Lymphocytes (%) (Auto) 53 % Monocytes (%) (Auto) 2 % Eosinophils (%) (Auto) 6 % Basophils (%) (Auto) 1 % Neutrophils # (Auto) 0.7 x10^3uL Lymphocytes # (Auto) 1.0 x10^3/uL Monocytes # (Auto) 0.0 x10^3/uL Eosinophils # (Auto) 0.1 x10^3/uL Basophils # (Auto) 0.0 x10^3/uL Segmented Neutrophils % 33 % Band Neutrophils % 9 % Atypical Lymphocytes % (Manual) 5 % Blast Cells % (Manual) 8 % Platelet Estimate Adequate Sodium Level 139 mmol/L Potassium Level 5.0 mmol/L Chloride Level 105 mmol/L Carbon Dioxide Level 27 mmol/L Anion Gap 7 Blood Urea Nitrogen 42 mg/dL Creatinine 4.7 mg/dL Estimated GFR (Cockcroft-Gault) 12.1 Glucose Level 107 mg/dL Calcium Level 9.0 mg/dL PE: no exam A/P: Abnormal CT/multiple myeloma LISETTE/CKD ACD Abd pain, nausea, constipation - resolved -on PPI, Miralax, Dulcolax -colonoscopy ~5 years ago -- Out for bone marrow biopsy. No additional GI recommendations at this time. Continue per Dr. Alves, Dr. Carroll. FABIO SUTHERLAND Mar 15, 2017 11:40
--- NOTE | 2017-03-15 11:41 | RAD ---
Procedure: CT-guided bone marrow aspiration and biopsy Clinical Indication: History findings suspicious for multiple myeloma Sedation: Conscious sedation was administered for 18 minutes. The patient was monitored by a qualified independent observer throughout the time of sedation. Please refer to the medical record for exact doses of medications utilized to achieve moderate sedation. Antibiotics: None Fluoro Time: Not applicable Contrast: Not applicable Sterility: The procedure was performed in its entirety using appropriate elements of sterile technique. Consent: The procedure was explained in its entirety to the patient or the patients designated home furnishings sales representative by a member of the treatment team, including a discussion of the risks, benefits and commonly accepted alternatives to the procedure, as well as the expected consequences of no therapy whatsoever. Discussion of the risks included, but was not limited to, those that are most frequent and those that are rare but possibly severe or life-threatening, as well as the possibility of unforeseen complications. Technique and Findings: Following informed consent, the patient was prepped and draped in the usual sterile fashion. 1% Lidocaine was used to achieve local anesthesia over the posterior superior iliac spine on the right. A small dermatotomy was made. Under periodic CT surveillance, a 10-gauge needle was advanced through the cortex and 2 separate 2 mL marrow aspirates were obtained and prepared by the on-site fastener technologist. A single 11-gauge core bone biopsy specimen was then obtained and preserved in formalin. The needle was then removed and hemostasis was achieved with manual compression. Complications: No immediate Impression: 1. CT-guided bone marrow aspiration and biopsy as described PQRS Compliance Statement: One or more of the following individualized dose reduction techniques were utilized for this examination: 1. Automated exposure control 2. Adjustment of the mA and/or kV according to patient size 3. Use of iterative reconstruction technique
[2017-03-15 12:19] LABS: ALPHA 1 0.3 g/dL (0.0-0.4); ALPHA 2 1.1 g/dL (0.4-1.0); GAMMA 0.7 g/dL (0.4-1.8); M-SPIKE Note: g/dL (Not Observed)
[2017-03-15] MEDS: TAMSULOSIN 0.4 MG CAP.ER.24H. PO SCH (13:26)
[2017-03-15] MEDS: PANTOPRAZOLE 40 MG TABLET.DR. PO SCH (13:26)
[2017-03-15] MEDS: DEXAMETHASONE 4 MG TABLET PO SCH (13:28)
[2017-03-15] MEDS: POLYETHYLENE GLYCOL 3350 17 GM PACKET. PO SCH (13:35)
[2017-03-16] MEDS: HYDROcodone/APAP 5/325MG 1 TAB TABLET PO PRN ×2 (02:46→13:14)
[2017-03-16 03:03] VITALS: BP 139/52
[2017-03-16] MEDS: IV 1/2 NORMAL SALINE 1,000 ML IV SCH ×3 (03:12→15:47)
[2017-03-16 07:00] VITALS: BP 124/61
[2017-03-16] MEDS: POLYETHYLENE GLYCOL 3350 17 GM PACKET. PO SCH (08:44)
[2017-03-16] MEDS: PANTOPRAZOLE 40 MG TABLET.DR. PO SCH (08:44)
[2017-03-16] MEDS: DEXAMETHASONE 4 MG TABLET PO SCH (08:44)
[2017-03-16] MEDS: TAMSULOSIN 0.4 MG CAP.ER.24H. PO SCH (08:44)
--- NOTE | 2017-03-16 10:30 | PDOC ---
GENERAL General: vss and afebrile. awake and alert and much more comfortable with steroids and able to move around in bed. mild decrease in BUN and creatinine. exam stable. no biopsy reports available to date. plans per oncology. otherwise same. Problems: VITAL SIGNS Vital Signs: Vital Signs Date Time Temp Pulse Resp B/P (MAP) Pulse Ox O2 Delivery O2 Flow Rate FiO2 03/16/17 08:05 Room Air 03/16/17 07:00 97.9 75 20 124/61 (82) 93 97.9 03/16/17 03:46 3.0 I & O I & O Intake and Output 03/17/17 07:00 Output Total 970 ml Balance -970 ml Output Urine Total 970 ml ALLERGIES Allergies: Allergies Coded Allergies Type Severity Reaction Last Updated Verified No Known Medication Allergies Allergy Intermediate 03/11/17 Yes MEDS Medications: Current Medications Medications (Trade) Dose Ordered Sig/Broderick Start Time Stop Time Status Last Admin Dose Admin Acetaminophen/ Hydrocodone Bitart (Lortab 5/325) 1 tab PRN Q4HRS PRN 03/11/17 12:30 03/16/17 02:46 1 TAB Bisacodyl (Dulcolax Tab) 10 mg PRN DAILY PRN 03/13/17 11:30 Dexamethasone (Decadron) 40 mg DAILYWBKFT 03/15/17 12:00 03/18/17 08:01 03/16/17 08:44 40 MG Fentanyl Citrate (Fentanyl 2ml Vial) 100 mcg STK-MED ONCE 03/13/17 11:11 03/13/17 11:12 DC Fentanyl Citrate (Fentanyl 5ml Vial) 150 mcg 1X ONCE 03/15/17 11:30 03/15/17 11:31 DC 03/15/17 11:25 150 MCG Flumazenil (Romazicon) 0.5 mg STK-MED ONCE 03/15/17 10:57 03/15/17 10:58 DC Info (Do NOT chart on this entry -- for MONITORING) 1 each PRN DAILY PRN 03/12/17 09:15 03/14/17 09:14 DC Iohexol (Omnipaque 240 Mg/ml) 30 ml 1X ONCE 03/12/17 09:00 03/12/17 09:05 DC 03/12/17 10:43 30 ML Lidocaine/Sodium Bicarbonate (Buffered Lidocaine 1%) 8 ml 1X ONCE 03/15/17 11:30 03/15/17 11:31 DC 03/15/17 11:24 8 ML Midazolam HCl (Versed) 3 mg 1X ONCE 03/15/17 11:30 03/15/17 11:31 DC 03/15/17 11:25 3 MG Naloxone HCl (Narcan) 0.4 mg STK-MED ONCE 03/15/17 10:57 03/15/17 10:58 DC Ondansetron HCl (Zofran) 4 mg PRN Q6HRS PRN 03/11/17 13:15 03/14/17 23:07 4 MG Pantoprazole Sodium (Protonix) 40 mg DAILYAC 03/12/17 07:30 03/16/17 08:44 40 MG Polyethylene Glycol (miraLAX PACKET) 17 gm DAILY 03/12/17 17:00 Sodium Chloride 1,000 ml @ 125 mls/hr Q8H 03/11/17 12:30 03/16/17 03:12 125 MLS/HR Tamsulosin HCl (Flomax) 0.4 mg DAILY 03/12/17 09:00 03/16/17 08:44 0.4 MG LAB Lab: Laboratory Tests Test 03/16/17 05:06 Sodium Level 138 mmol/L (136-145) Potassium Level 5.6 mmol/L (3.5-5.1) Chloride Level 104 mmol/L (98-107) Carbon Dioxide Level 23 mmol/L (21-32) Anion Gap 11 (6-14) Blood Urea Nitrogen 42 mg/dL (8-26) Creatinine 4.5 mg/dL (0.7-1.3) Estimated GFR (Cockcroft-Gault) 12.7 Glucose Level 136 mg/dL (70-99) Calcium Level 8.5 mg/dL (8.5-10.1) Phosphorus Level 4.5 mg/dL (2.6-4.7) Magnesium Level 2.1 mg/dL (1.8-2.4) SIMA IMCHAUD MD Mar 16, 2017 10:30
[2017-03-16 11:00] VITALS: BP 150/60
[2017-03-16] MEDS ORDERED: SODIUM POLYSTYRENE SULFONATE 15 GM/60 ML ORAL.SUSP. PO ONE (12:00)
--- NOTE | 2017-03-16 12:13 | PDOC ---
SUBJECTIVE ROS LISETTE/ ? Myeloma Diong and feeling much better after steroids started CVS: no Orthopnea, no CP RESP: no SOB, no COLBERT GI: no Nausea, no Vomiting : no Dysuria, no Urgency OBJECTIVE Vital Signs Vital Signs Date Time Temp Pulse Resp B/P (MAP) Pulse Ox O2 Delivery O2 Flow Rate FiO2 03/16/17 08:05 Room Air 03/16/17 07:00 97.9 75 20 124/61 (82) 93 97.9 03/16/17 03:46 3.0 I & 0 Intake and Output 03/17/17 07:00 Output Total 970 ml Balance -970 ml Output Urine Total 970 ml PHYSICAL EXAM Physical Exam GEN: Awake, Oriented x 3, In no distress - obese EYES: Vision Unchanged, Conjunctiva Normal EN: No EN Drainage, Mucous Membranes moist NECK: no JVD, no JVP, Supple, no Thyromegaly CVS: S1S2, no Murmur, No Gallop, No Rub,no Edema RESP: no Rales, no Rhonchi,no Acc. Muscle Use GI: BS + ve, NO Bruit, Non Tender, Non Distended : no CVA tenderness, no Suprapubic Tenderness DIAGNOSIS/ASSESSMENT Assessment & Plan ARF: Suspect Myeloma Kidney; Current fluid and E-lyte status does not necessitate emergent need for dialysis. Will re-evaluate for dialysis in the am . ANEMIA;defer to Dr Alves HTN: Current BP meds as reviewed. See orders for changes. ^K - change to renal diet - ronnie Discussed Plan of Care with pt at bedside Problems: COMMENT/RELEVANT DATA Meds Current Medications Medications (Trade) Dose Ordered Sig/Broderick Start Time Stop Time Status Last Admin Dose Admin Acetaminophen/ Hydrocodone Bitart (Lortab 5/325) 1 tab PRN Q4HRS PRN 03/11/17 12:30 03/16/17 02:46 1 TAB Bisacodyl (Dulcolax Tab) 10 mg PRN DAILY PRN 03/13/17 11:30 Dexamethasone (Decadron) 40 mg DAILYWBKFT 03/15/17 12:00 03/18/17 08:01 03/16/17 08:44 40 MG Fentanyl Citrate (Fentanyl 2ml Vial) 100 mcg STK-MED ONCE 03/13/17 11:11 03/13/17 11:12 DC Fentanyl Citrate (Fentanyl 5ml Vial) 150 mcg 1X ONCE 03/15/17 11:30 03/15/17 11:31 DC 03/15/17 11:25 150 MCG Flumazenil (Romazicon) 0.5 mg STK-MED ONCE 03/15/17 10:57 03/15/17 10:58 DC Info (Do NOT chart on this entry -- for MONITORING) 1 each PRN DAILY PRN 03/12/17 09:15 03/14/17 09:14 DC Iohexol (Omnipaque 240 Mg/ml) 30 ml 1X ONCE 03/12/17 09:00 03/12/17 09:05 DC 03/12/17 10:43 30 ML Lidocaine/Sodium Bicarbonate (Buffered Lidocaine 1%) 8 ml 1X ONCE 03/15/17 11:30 03/15/17 11:31 DC 03/15/17 11:24 8 ML Midazolam HCl (Versed) 3 mg 1X ONCE 03/15/17 11:30 03/15/17 11:31 DC 03/15/17 11:25 3 MG Naloxone HCl (Narcan) 0.4 mg STK-MED ONCE 03/15/17 10:57 03/15/17 10:58 DC Ondansetron HCl (Zofran) 4 mg PRN Q6HRS PRN 03/11/17 13:15 03/14/17 23:07 4 MG Pantoprazole Sodium (Protonix) 40 mg DAILYAC 03/12/17 07:30 03/16/17 08:44 40 MG Polyethylene Glycol (miraLAX PACKET) 17 gm DAILY 03/12/17 17:00 Sodium Chloride 1,000 ml @ 125 mls/hr Q8H 03/11/17 12:30 03/16/17 03:12 125 MLS/HR Tamsulosin HCl (Flomax) 0.4 mg DAILY 03/12/17 09:00 03/16/17 08:44 0.4 MG Lab Laboratory Tests Test 03/16/17 05:06 Sodium Level 138 mmol/L (136-145) Potassium Level 5.6 mmol/L (3.5-5.1) Chloride Level 104 mmol/L (98-107) Carbon Dioxide Level 23 mmol/L (21-32) Anion Gap 11 (6-14) Blood Urea Nitrogen 42 mg/dL (8-26) Creatinine 4.5 mg/dL (0.7-1.3) Estimated GFR (Cockcroft-Gault) 12.7 Glucose Level 136 mg/dL (70-99) Calcium Level 8.5 mg/dL (8.5-10.1) Phosphorus Level 4.5 mg/dL (2.6-4.7) Magnesium Level 2.1 mg/dL (1.8-2.4) KERWIN GODINEZ MD Mar 16, 2017 12:13
[2017-03-16] MEDS: DOCUSATE SODIUM 100 MG CAPSULE. PO SCH ×2 (13:00→21:02)
[2017-03-16 15:00] VITALS: BP 125/79
[2017-03-16 19:00] VITALS: BP 156/66
[2017-03-16 23:00] VITALS: BP 136/70
[2017-03-17] MEDS: HYDROcodone/APAP 5/325MG 1 TAB TABLET PO PRN (01:11)
[2017-03-17] MEDS: IV 1/2 NORMAL SALINE 1,000 ML IV SCH ×4 (01:12→23:36)
[2017-03-17 03:00] VITALS: BP 137/69
[2017-03-17 06:08] LABS: CALCIUM 8.5 mg/dL (8.5-10.1); CREATININE 4.1 mg/dL (0.7-1.3); GFR 14.2
[2017-03-17 07:00] VITALS: BP 146/76
[2017-03-17] MEDS: DOCUSATE SODIUM 100 MG CAPSULE. PO SCH ×2 (08:03→20:20)
[2017-03-17] MEDS: PANTOPRAZOLE 40 MG TABLET.DR. PO SCH (08:03)
[2017-03-17] MEDS: TAMSULOSIN 0.4 MG CAP.ER.24H. PO SCH (08:03)
[2017-03-17] MEDS: DEXAMETHASONE 4 MG TABLET PO SCH (08:05)
[2017-03-17] MEDS: POLYETHYLENE GLYCOL 3350 17 GM PACKET. PO SCH (08:08)
[2017-03-17 10:58] VITALS: BP 133/69
--- NOTE | 2017-03-17 12:25 | PDOC ---
GENERAL General: vss and afebrile. awake and alert and family in attendance. chest clear and heart regular. abdomen benign. continued decreased pain. pathology all still pending. renal numbers drifting down slowly. continue same. Problems: VITAL SIGNS Vital Signs: Vital Signs Date Time Temp Pulse Resp B/P (MAP) Pulse Ox O2 Delivery O2 Flow Rate FiO2 03/17/17 10:58 98.7 72 18 133/69 (90) 93 Room Air 98.7 I & O I & O Intake and Output 03/18/17 07:00 Output Total 320 ml Balance -320 ml Output Urine Total 320 ml ALLERGIES Allergies: Allergies Coded Allergies Type Severity Reaction Last Updated Verified No Known Medication Allergies Allergy Intermediate 03/11/17 Yes MEDS Medications: Current Medications Medications (Trade) Dose Ordered Sig/Broderick Start Time Stop Time Status Last Admin Dose Admin Acetaminophen/ Hydrocodone Bitart (Lortab 5/325) 1 tab PRN Q4HRS PRN 03/11/17 12:30 03/17/17 01:11 1 TAB Bisacodyl (Dulcolax Tab) 10 mg PRN DAILY PRN 03/13/17 11:30 Dexamethasone (Decadron) 40 mg DAILYWBKFT 03/15/17 12:00 03/18/17 08:01 03/17/17 08:05 40 MG Docusate Sodium (Colace) 100 mg BID 03/16/17 13:00 03/17/17 08:03 100 MG Fentanyl Citrate (Fentanyl 2ml Vial) 100 mcg STK-MED ONCE 03/13/17 11:11 03/13/17 11:12 DC Fentanyl Citrate (Fentanyl 5ml Vial) 150 mcg 1X ONCE 03/15/17 11:30 03/15/17 11:31 DC 03/15/17 11:25 150 MCG Flumazenil (Romazicon) 0.5 mg STK-MED ONCE 03/15/17 10:57 03/15/17 10:58 DC Info (Do NOT chart on this entry -- for MONITORING) 1 each PRN DAILY PRN 03/12/17 09:15 03/14/17 09:14 DC Iohexol (Omnipaque 240 Mg/ml) 30 ml 1X ONCE 03/12/17 09:00 03/12/17 09:05 DC 03/12/17 10:43 30 ML Lidocaine/Sodium Bicarbonate (Buffered Lidocaine 1%) 8 ml 1X ONCE 03/15/17 11:30 03/15/17 11:31 DC 03/15/17 11:24 8 ML Midazolam HCl (Versed) 3 mg 1X ONCE 03/15/17 11:30 03/15/17 11:31 DC 03/15/17 11:25 3 MG Naloxone HCl (Narcan) 0.4 mg STK-MED ONCE 03/15/17 10:57 03/15/17 10:58 DC Ondansetron HCl (Zofran) 4 mg PRN Q6HRS PRN 03/11/17 13:15 03/14/17 23:07 4 MG Pantoprazole Sodium (Protonix) 40 mg DAILYAC 03/12/17 07:30 03/17/17 08:03 40 MG Polyethylene Glycol (miraLAX PACKET) 17 gm DAILY 03/12/17 17:00 Sodium Polystyrene Sulfonate (Kayexalate) 45 gm 1X ONCE 03/16/17 12:00 03/16/17 12:16 DC 03/16/17 13:14 45 GM Sodium Chloride 1,000 ml @ 125 mls/hr Q8H 03/11/17 12:30 03/17/17 08:00 125 MLS/HR Tamsulosin HCl (Flomax) 0.4 mg DAILY 03/12/17 09:00 03/17/17 08:03 0.4 MG LAB Lab: Laboratory Tests Test 03/16/17 17:00 03/17/17 05:00 Urine Protein 91.4 mg/dL (Not Estab.) Urine Protein 24 Hr Calculated 3656 mg/24 hr (30-150) Sodium Level 137 mmol/L (136-145) Potassium Level 5.0 mmol/L (3.5-5.1) Chloride Level 103 mmol/L (98-107) Carbon Dioxide Level 23 mmol/L (21-32) Anion Gap 11 (6-14) Blood Urea Nitrogen 46 mg/dL (8-26) Creatinine 4.1 mg/dL (0.7-1.3) Estimated GFR (Cockcroft-Gault) 14.2 Glucose Level 124 mg/dL (70-99) Calcium Level 8.5 mg/dL (8.5-10.1) SIMA MICHAUD MD Mar 17, 2017 12:25
--- NOTE | 2017-03-17 12:54 | PDOC ---
SUBJECTIVE ROS LISETTE - with suspected Myeloma Kidney Doign better overall CVS: no Orthopnea, no CP RESP: no SOB, no COLBERT GI: no Nausea, no Vomiting : no Dysuria, no Urgency OBJECTIVE Vital Signs Vital Signs Date Time Temp Pulse Resp B/P (MAP) Pulse Ox O2 Delivery O2 Flow Rate FiO2 03/17/17 10:58 98.7 72 18 133/69 (90) 93 Room Air 98.7 I & 0 Intake and Output 03/18/17 07:00 Output Total 320 ml Balance -320 ml Output Urine Total 320 ml PHYSICAL EXAM Physical Exam GEN: Awake, Oriented x 3, In no distress - obese EYES: Vision Unchanged, Conjunctiva Normal EN: No EN Drainage, Mucous Membranes moist NECK: no JVD, no JVP, Supple, no Thyromegaly CVS: S1S2, no Murmur, No Gallop, No Rub,no Edema RESP: no Rales, no Rhonchi,no Acc. Muscle Use GI: BS + ve, NO Bruit, Non Tender, Non Distended : no CVA tenderness, no Suprapubic Tenderness DIAGNOSIS/ASSESSMENT Assessment & Plan ARF: Creat improvign with IVF. Suspect Myeloma Kidney; Current fluid and E- lyte status does not necessitate emergent need for dialysis. Will re-evaluate for dialysis in the am ANEMIA;defer to Dr Alves HTN: Current BP meds as reviewed. See orders for changes. ^K - better after change to renal diet and 1 time ronnie Discussed Plan of Care with pt at bedside - He is not sure if he wants to f/up with Us. COMMENT/RELEVANT DATA Meds Current Medications Medications (Trade) Dose Ordered Sig/Broderick Start Time Stop Time Status Last Admin Dose Admin Acetaminophen/ Hydrocodone Bitart (Lortab 5/325) 1 tab PRN Q4HRS PRN 03/11/17 12:30 03/17/17 01:11 1 TAB Bisacodyl (Dulcolax Tab) 10 mg PRN DAILY PRN 03/13/17 11:30 Dexamethasone (Decadron) 40 mg DAILYWBKFT 03/15/17 12:00 03/18/17 08:01 03/17/17 08:05 40 MG Docusate Sodium (Colace) 100 mg BID 03/16/17 13:00 03/17/17 08:03 100 MG Fentanyl Citrate (Fentanyl 2ml Vial) 100 mcg STK-MED ONCE 03/13/17 11:11 03/13/17 11:12 DC Fentanyl Citrate (Fentanyl 5ml Vial) 150 mcg 1X ONCE 03/15/17 11:30 03/15/17 11:31 DC 03/15/17 11:25 150 MCG Flumazenil (Romazicon) 0.5 mg STK-MED ONCE 03/15/17 10:57 03/15/17 10:58 DC Info (Do NOT chart on this entry -- for MONITORING) 1 each PRN DAILY PRN 03/12/17 09:15 03/14/17 09:14 DC Iohexol (Omnipaque 240 Mg/ml) 30 ml 1X ONCE 03/12/17 09:00 03/12/17 09:05 DC 03/12/17 10:43 30 ML Lidocaine/Sodium Bicarbonate (Buffered Lidocaine 1%) 8 ml 1X ONCE 03/15/17 11:30 03/15/17 11:31 DC 03/15/17 11:24 8 ML Midazolam HCl (Versed) 3 mg 1X ONCE 03/15/17 11:30 03/15/17 11:31 DC 03/15/17 11:25 3 MG Naloxone HCl (Narcan) 0.4 mg STK-MED ONCE 03/15/17 10:57 03/15/17 10:58 DC Ondansetron HCl (Zofran) 4 mg PRN Q6HRS PRN 03/11/17 13:15 03/14/17 23:07 4 MG Pantoprazole Sodium (Protonix) 40 mg DAILYAC 03/12/17 07:30 03/17/17 08:03 40 MG Polyethylene Glycol (miraLAX PACKET) 17 gm DAILY 03/12/17 17:00 Sodium Polystyrene Sulfonate (Kayexalate) 45 gm 1X ONCE 03/16/17 12:00 03/16/17 12:16 DC 03/16/17 13:14 45 GM Sodium Chloride 1,000 ml @ 125 mls/hr Q8H 03/11/17 12:30 03/17/17 08:00 125 MLS/HR Tamsulosin HCl (Flomax) 0.4 mg DAILY 03/12/17 09:00 03/17/17 08:03 0.4 MG Lab Laboratory Tests Test 03/16/17 17:00 03/17/17 05:00 Urine Protein 91.4 mg/dL (Not Estab.) Urine Protein 24 Hr Calculated 3656 mg/24 hr (30-150) Sodium Level 137 mmol/L (136-145) Potassium Level 5.0 mmol/L (3.5-5.1) Chloride Level 103 mmol/L (98-107) Carbon Dioxide Level 23 mmol/L (21-32) Anion Gap 11 (6-14) Blood Urea Nitrogen 46 mg/dL (8-26) Creatinine 4.1 mg/dL (0.7-1.3) Estimated GFR (Cockcroft-Gault) 14.2 Glucose Level 124 mg/dL (70-99) Calcium Level 8.5 mg/dL (8.5-10.1) KERWIN GODINEZ MD Mar 17, 2017 12:54
[2017-03-17 13:09] LABS: TOTAL SERUM CREATININE 4.07 mg/dL (0.76-1.27); TOTAL URINE CREATININE 36.6 mg/dL (Not Estab.)
[2017-03-17 14:37] VITALS: BP 138/64
[2017-03-17 19:00] VITALS: BP 146/69
[2017-03-17 23:00] VITALS: BP 152/78
[2017-03-18] VITALS (7 sets, daily range): BP systolic 138–164; BP diastolic 59–86
[2017-03-18] MEDS: HYDROcodone/APAP 5/325MG 1 TAB TABLET PO PRN ×2 (00:45→20:33)
[2017-03-18] MEDS: IV 1/2 NORMAL SALINE 1,000 ML IV SCH ×3 (05:55→21:24)
[2017-03-18] MEDS: PANTOPRAZOLE 40 MG TABLET.DR. PO SCH (08:05)
[2017-03-18] MEDS: TAMSULOSIN 0.4 MG CAP.ER.24H. PO SCH (08:18)
[2017-03-18] MEDS: DEXAMETHASONE 4 MG TABLET PO SCH (08:18)
[2017-03-18] MEDS: DOCUSATE SODIUM 100 MG CAPSULE. PO SCH ×2 (08:18→20:32)
[2017-03-18] MEDS: POLYETHYLENE GLYCOL 3350 17 GM PACKET. PO SCH (08:19)
--- NOTE | 2017-03-18 08:49 | PDOC ---
GENERAL General: vss and afebrile. awake and alert and definitely feeling better daily. exam stable. in attendance and wants 2nd opinion on treatment with Dr. Cardenas at [facility] who has 100.1% one year survival with myeloma patients per the internet. will let Dr. Alves set up same if he would as in same group. await path. Problems: VITAL SIGNS Vital Signs: Vital Signs Date Time Temp Pulse Resp B/P (MAP) Pulse Ox O2 Delivery O2 Flow Rate FiO2 03/18/17 08:13 97.9 77 18 162/76 (104) 98 Room Air 97.9 ALLERGIES Allergies: Allergies Coded Allergies Type Severity Reaction Last Updated Verified No Known Medication Allergies Allergy Intermediate 03/11/17 Yes MEDS Medications: Current Medications Medications (Trade) Dose Ordered Sig/Broderick Start Time Stop Time Status Last Admin Dose Admin Acetaminophen/ Hydrocodone Bitart (Lortab 5/325) 1 tab PRN Q4HRS PRN 03/11/17 12:30 03/18/17 00:45 1 TAB Bisacodyl (Dulcolax Tab) 10 mg PRN DAILY PRN 03/13/17 11:30 Dexamethasone (Decadron) 40 mg DAILYWBKFT 03/15/17 12:00 03/18/17 08:01 DC 03/18/17 08:18 40 MG Docusate Sodium (Colace) 100 mg BID 03/16/17 13:00 03/18/17 08:18 100 MG Fentanyl Citrate (Fentanyl 2ml Vial) 100 mcg STK-MED ONCE 03/13/17 11:11 03/13/17 11:12 DC Fentanyl Citrate (Fentanyl 5ml Vial) 150 mcg 1X ONCE 03/15/17 11:30 03/15/17 11:31 DC 03/15/17 11:25 150 MCG Flumazenil (Romazicon) 0.5 mg STK-MED ONCE 03/15/17 10:57 03/15/17 10:58 DC Info (Do NOT chart on this entry -- for MONITORING) 1 each PRN DAILY PRN 03/12/17 09:15 03/14/17 09:14 DC Iohexol (Omnipaque 240 Mg/ml) 30 ml 1X ONCE 03/12/17 09:00 03/12/17 09:05 DC 03/12/17 10:43 30 ML Lidocaine/Sodium Bicarbonate (Buffered Lidocaine 1%) 8 ml 1X ONCE 03/15/17 11:30 03/15/17 11:31 DC 03/15/17 11:24 8 ML Midazolam HCl (Versed) 3 mg 1X ONCE 03/15/17 11:30 03/15/17 11:31 DC 03/15/17 11:25 3 MG Naloxone HCl (Narcan) 0.4 mg STK-MED ONCE 03/15/17 10:57 03/15/17 10:58 DC Ondansetron HCl (Zofran) 4 mg PRN Q6HRS PRN 03/11/17 13:15 03/14/17 23:07 4 MG Pantoprazole Sodium (Protonix) 40 mg DAILYAC 03/12/17 07:30 03/18/17 08:05 40 MG Polyethylene Glycol (miraLAX PACKET) 17 gm DAILY 03/12/17 17:00 03/18/17 08:19 17 GM Sodium Polystyrene Sulfonate (Kayexalate) 45 gm 1X ONCE 03/16/17 12:00 03/16/17 12:16 DC 03/16/17 13:14 45 GM Sodium Chloride 1,000 ml @ 125 mls/hr Q8H 03/11/17 12:30 03/18/17 05:55 125 MLS/HR Tamsulosin HCl (Flomax) 0.4 mg DAILY 03/12/17 09:00 03/18/17 08:18 0.4 MG SIMA MICHAUD MD Mar 18, 2017 08:49
--- NOTE | 2017-03-18 10:42 | PDOC ---
Subjective: Subjective: No GI complaints. Says discharging tomorrow. Objective: Vital Signs: Vital Signs Date Time Temp Pulse Resp B/P (MAP) Pulse Ox O2 Delivery O2 Flow Rate FiO2 03/18/17 09:59 Room Air 03/18/17 09:58 97.9 77 18 162/76 (104) 98 97.9 PE: GEN: NAD, up to chair LUNGS: clear HEART: RRR ABD: NABS, S/NT NEURO/PSYCH: A & O 3 A/P: LISETTE/myeloma -s/p bone marrow biopsy -Cr improving ACD, neutropenia Abd pain, nausea, constipation - resolved -- Stable GI-calvin, continue per renal and heme/onc. FABIO SUTHERLAND Mar 18, 2017 10:42
--- NOTE | 2017-03-18 11:50 | PDOC ---
Renal-Progress Notes Subjective Notes Notes STABLE History of Present Illness Hx of present illness NO NEW COMPLAINTS Vitals Vitals Vital Signs Date Time Temp Pulse Resp B/P (MAP) Pulse Ox O2 Delivery O2 Flow Rate FiO2 03/18/17 10:55 98.2 90 18 145/59 (87) 94 Room Air 98.2 Weight Weight [ ] Review of Systems Constitutional: yes: malaise, weakness, alert, oriented Ears/Nose/Throat: Yes: no symptom reported Eyes: Yes: no symptom reported Pulmonary: Yes no symptom reported Cardiovascular: Yes no symptom reported Gastrointestional: Yes: no symptom reported Genitourinary: Yes: no symptom reported Musculoskeletal: Yes: back pain Endocrine: Yes: no symptom reported Physical Exam General Appearance: no apparent distress Skin: warm Respiratory: bilateral CTA Heart: S1S2 Abdomen: soft, bowel sounds present Genitourinary: bladder flat Extremities: pulses present Neurology: alert, oriented Assessment Assessment IMP LISETTE WITH CR DOWN TO 4.1-NON OLIGURIC ATN CKD STAGE 2 MOST LIKELY WITH CR OF 1.3 IN SEPTEMBER THIS YEAR HX OF PROSTATE CANCER MULTIPLE MYELOMA DEHYDRATION HTN 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
--- NOTE | 2017-03-18 12:38 | PDOC ---
PROGRESS NOTES Subjective Subjective HPI - Multiple Myeloma clinical diagnosis - Bone lesions. The patient has evidence lytic lesions noted on CT scan of the abdomen and pelvis on 03/12/2017. There is a pathologic fracture at L2 vertebrae. Multiple small bony lucencies are best seen in the spine. ROS - backpain better Objective Objective Vital Signs Date Time Temp Pulse Resp B/P (MAP) Pulse Ox O2 Delivery O2 Flow Rate FiO2 03/18/17 10:55 98.2 90 18 145/59 (87) 94 Room Air 98.2 03/16/17 03:46 3.0 Physical Exam Heart: Normal S1, Normal S2 General: Alert, Oriented X3, No acute distress Lungs: Clear to auscultation Neuro: Normal speech Psych/Mental Status: Mental status NL Assessment Assessment IMPRESSION AND PLAN: 1. Multiple Myeloma clinical diagnosis - Bone lesions. The patient has evidence lytic lesions noted on CT scan of the abdomen and pelvis on 03/12/2017. There is a pathologic fracture at L2 vertebrae. Multiple small bony lucencies are best seen in the spine. PSA has been normal at 1.06. CT scan of the abdomen and pelvis on 03/12/17 does not reveal any obvious primary malignancy. CT scan of the chest 03/13/17 is negative for primary for malignancy. Faint scattered lucencies in the bony structures again raising the possibility of malignancy such as multiple myeloma versus aggressive bony demineralization. Bone scan 03/13/17: Uptake of radiopharmaceutical in the L3 vertebral body most likely due to fracture. Focal uptake within medial aspect of the right ninth and 10th ribs may be secondary to fracture or degenerative process. Focal uptake within the right shoulder likely degenerative process. Skeletal survey 03/13/17: Patchy bony demineralization. Several small calvarial lucencies compatible with lytic lesions versus venous lakes. Moderate multilevel degenerative change throughout the spine. L2 vertebral body fracture thought to be pathologic on the recent CT study. The other smaller lytic bone lesions seen on the CT abdomen/pelvis exam are not clearly visible radiographically due to its lower sensitivity. A neoplastic etiology such as multiple myeloma remains likely. s/p L2 bone biopsy by Interventional Radiology 03/14/17. Serum protein electrophoresis has already been ordered and I added immunofixation studies and serum free light chains. S/p bone marrow bx 03/15/17. I discussed in detail with the patient and his regarding the clinical diagnosis of multiple myeloma and the workup needed and he understands and agrees with the plan. I d/w Dr Solo. I started Decadron 40 mg daily x 4 days from 03/15/17 after bone marrow bx. He can be discharged 03/19/17 and f/u with me 03/18/17. He also wants another opinion with Dr Cardenas at . 2. Normochromic normocytic anemia. Iron studies suggest anemia of chronic disease, B12 and folic acid levels are normal. This could be related to underlying possible malignancy and also renal insufficiency. 3. Leukopenia, likely reactive. Continue to monitor. 4. Renal failure with a creatinine of 5.0 on 03/13/2017 and a BUN of 51. Continue workup per Dr. Edouard. Comment Review of Relevant I have reviewed the following items rupa (where applicable) has been applied. Labs Laboratory Tests Test 03/16/17 17:00 03/17/17 05:00 Urine Protein 91.4 mg/dL (Not Estab.) Urine Creatinine 24 Hour 1464 mg/24 hr (6327-8446) Creatinine Clearance 24 Hour 25 mL/min (97-137) Urine Protein 24 Hr Calculated 3656 mg/24 hr (30-150) Creatinine 4.07 mg/dL (0.76-1.27) 4.1 mg/dL (0.7-1.3) Estimated GFR (Non- 13 (>59) EGFR 15 (>59) Sodium Level 137 mmol/L (136-145) Potassium Level 5.0 mmol/L (3.5-5.1) Chloride Level 103 mmol/L (98-107) Carbon Dioxide Level 23 mmol/L (21-32) Anion Gap 11 (6-14) Blood Urea Nitrogen 46 mg/dL (8-26) Estimated GFR (Cockcroft-Gault) 14.2 Glucose Level 124 mg/dL (70-99) Calcium Level 8.5 mg/dL (8.5-10.1) Medications Current Medications Acetaminophen/ Hydrocodone Bitart (Lortab 5/325) 1 tab PRN Q4HRS PRN PO PAIN Last administered on 03/18/17 00:45; Start 03/11/17 at 12:30 Tamsulosin HCl (Flomax) 0.4 mg DAILY PO Last administered on 03/18/17 08:18; Start 03/12/17 at 09:00 Pantoprazole Sodium (Protonix) 40 mg DAILYAC PO Last administered on 03/18/17 08:05; Start 03/12/17 at 07:30 Sodium Chloride 1,000 ml @ 125 mls/hr Q8H IV Last administered on 03/18/17 05 :55; Start 03/11/17 at 12:30 Ondansetron HCl (Zofran) 4 mg PRN Q6HRS PRN IV NAUSEA/VOMITING Last administered on 03/14/17 23:07; Start 03/11/17 at 13:15 Polyethylene Glycol (miraLAX PACKET) 17 gm DAILY PO ; Start 03/11/17 at 15:00; Stop 03/13/17 at 17:30; Status DC Iohexol (Omnipaque 240 Mg/ml) 30 ml 1X ONCE PO Last administered on 03/12/17 10:43; Start 03/12/17 at 09:00; Stop 03/12/17 at 09:05; Status DC Info (Do NOT chart on this entry -- for MONITORING) 1 each PRN DAILY PRN MC SEE COMMENTS; Start 03/12/17 at 09:15; Stop 03/14/17 at 09:14; Status DC Polyethylene Glycol (miraLAX PACKET) 17 gm DAILY PO Last administered on 08:19; Start 03/12/17 at 17:00 Lidocaine/Sodium Bicarbonate (Buffered Lidocaine 1%) 20 ml 1X ONCE IJ Last administered on 03/13/17 12:23; Start 03/13/17 at 11:15; Stop 03/13/17 at 11:16 ; Status DC Midazolam HCl (Versed) 2 mg 1X ONCE IV Last administered on 03/13/17 12:24; Start 03/13/17 at 11:15; Stop 03/13/17 at 11:16; Status DC Fentanyl Citrate (Fentanyl 2ml Vial) 100 mcg 1X ONCE IV Last administered on 03/13/17 12:24; Start 03/13/17 at 11:15; Stop 03/13/17 at 11:16; Status DC Lidocaine/Sodium Bicarbonate (Buffered Lidocaine 1%) 20 ml STK-MED ONCE IJ ; Start 03/13/17 at 11:11; Stop 03/13/17 at 11:12; Status DC Fentanyl Citrate (Fentanyl 2ml Vial) 100 mcg STK-MED ONCE .ROUTE ; Start at 11:11; Stop 03/13/17 at 11:12; Status DC Midazolam HCl (Versed) 2 mg STK-MED ONCE .ROUTE ; Start 03/13/17 at 11:11; Stop 03/13/17 at 11:12; Status DC Bisacodyl (Dulcolax Tab) 10 mg PRN DAILY PRN PO CONSTIPATION; Start 03/13/17 at 11:30 Lidocaine/Sodium Bicarbonate (Buffered Lidocaine 1%) 20 ml STK-MED ONCE IJ ; Start 03/15/17 at 10:41; Stop 03/15/17 at 10:42; Status DC Midazolam HCl (Versed) 5 mg STK-MED ONCE .ROUTE ; Start 03/15/17 at 10:57; Stop 03/15/17 at 10:58; Status DC Fentanyl Citrate (Fentanyl 5ml Vial) 250 mcg STK-MED ONCE .ROUTE ; Start at 10:57; Stop 03/15/17 at 10:58; Status DC Flumazenil (Romazicon) 0.5 mg STK-MED ONCE IV ; Start 03/15/17 at 10:57; Stop 03/15/17 at 10:58; Status DC Naloxone HCl (Narcan) 0.4 mg STK-MED ONCE .ROUTE ; Start 03/15/17 at 10:57; Stop 03/15/17 at 10:58; Status DC Lidocaine/Sodium Bicarbonate (Buffered Lidocaine 1%) 8 ml 1X ONCE IJ Last administered on 03/15/17 11:24; Start 03/15/17 at 11:30; Stop 03/15/17 at 11:31 ; Status DC Midazolam HCl (Versed) 3 mg 1X ONCE IV Last administered on 03/15/17 11:25; Start 03/15/17 at 11:30; Stop 03/15/17 at 11:31; Status DC Fentanyl Citrate (Fentanyl 5ml Vial) 150 mcg 1X ONCE IV Last administered on 03/15/17 11:25; Start 03/15/17 at 11:30; Stop 03/15/17 at 11:31; Status DC Dexamethasone (Decadron) 40 mg DAILYWBKFT PO Last administered on 03/18/17t 08: 18; Start 03/15/17 at 12:00; Stop 03/18/17 at 08:01; Status DC Sodium Polystyrene Sulfonate (Kayexalate) 45 gm 1X ONCE PO Last administered on 03/16/17 13:14; Start 03/16/17 at 12:00; Stop 03/16/17 at 12:16; Status DC Docusate Sodium (Colace) 100 mg BID PO Last administered on 03/18/17 08:18; Start 03/16/17 at 13:00 Active Scripts Active Reported Flomax (Tamsulosin Hcl) 0.4 Mg Cap.er.24h 1 Cap PO DAILY Hydrocodone-Apap 5-325 (Hydrocodone Bit/Acetaminophen) 1 Each Tablet 1 Tab PO PRN Q4HRS PRN Vitals/I & O Vital Sign - Last 24 Hours 03/17/17 03/17/17 03/17/17 03/18/17 14:37 19:00 23:00 00:45 Temp 98.3 98.1 96.3 98.3 98.1 96.3 Pulse 88 79 77 Resp 18 18 18 20 B/P (MAP) 138/64 (88) 146/69 (94) 152/78 (102) Pulse Ox 92 94 93 O2 Delivery Room Air Room Air Room Air Room Air 03/18/17 03/18/17 03/18/17 03/18/17 03:00 07:00 08:00 08:13 Temp 98.3 97.9 97.9 98.3 97.9 97.9 Pulse 78 77 77 Resp 18 18 18 B/P (MAP) 138/66 (90) 162/76 (104) 162/76 (104) Pulse Ox 95 98 98 O2 Delivery Room Air Room Air Room Air Room Air 03/18/17 03/18/17 03/18/17 09:58 09:59 10:55 Temp 97.9 98.2 97.9 98.2 Pulse 77 90 Resp 18 18 B/P (MAP) 162/76 (104) 145/59 (87) Pulse Ox 98 94 O2 Delivery Room Air Room Air Room Air MICHAEL CEJA MD Mar 18, 2017 12:38
--- NOTE | 2017-03-18 12:46 | PATHOLOGY ---
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 (JPM:pit; 03/15/2017) COMMENT: Sections of the L2 bone biopsy reveal a small segment of bone and blood clot containing sheets of atypical plasma cells. The atypical plasma cells possess eccentric, slightly enlarged, rounded to ovoid nuclei containing small nucleoli. There are focal admixed pigmented macrophages. There is no evidence of metastatic prostatic adenocarcinoma. An immunoperoxidase stain for CD138 and in situ hybridization for kappa and lambda light chain are obtained and yield the following results: CD138: Atypical plasma cells positive. Estelle TK: Atypical plasma cells positive and show kappa light chain restriction. Lambda TK: Very rare plasma cell positive. 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 The case is also examined by Dr. Laura Graves, who concurs with the diagnosis. (JPM:pit/mml; 03/15/2017) REPORT ELECTRONICALLY SIGNED BY: To Solo M.D. DATE/TIME: 03/18/2017 12:45 * * * * * * * * GROSS PATHOLOGY: The specimen is received in formalin labeled "Charles Avina, bone biopsy L2". Received is a single needle core of light singh bone measuring 0.5 cm in length by 0.2 cm in diameter admixed with blood coagulum measuring 2.2 x 1.1 x 0.2 cm in aggregate dimensions. The specimen is filtered and entirely submitted in cassette A1, following light decalcification. (CAA; 03/14/2017) INITIAL CPT CODE(S): A; 19354, 05754, 70378, 48482, 64157 Professional services performed by [facility] at [address] [address] Technical services performed by [facility] at [address] [place] [address], [address], [place] [address] Dr Roque SPECIMEN(S) RECEIVED: A.L2 bone biopsy CLINICAL HISTORY: L2 bone lesion, prostate cancer, possible multiple myeloma PATIENT: CHARLES AVINA /AGE: 410/04/1940 (Age: 76) PATIENT #: [id number] ALT CASE #: SPECIMEN COLLECTION DATE: 03/13/2017 SPECIMEN RECEIVED DATE: 03/13/2017 [facility] - [id number] [address] - PHONE: [phone] * * * END OF REPORT * * *
[2017-03-18 18:11] LABS: IMMUNOGLOBULIN A 16 mg/dL (61-437); IMMUNOGLOBULIN G 646 mg/dL (700-1600); IMMUNOGLOBULIN M 9 mg/dL (15-143)
[2017-03-19 03:00] VITALS: BP 164/79
[2017-03-19] MEDS: IV 1/2 NORMAL SALINE 1,000 ML IV SCH (05:21)
[2017-03-19 06:42] LABS: CALCIUM 8.6 mg/dL (8.5-10.1); CREATININE 3.6 mg/dL (0.7-1.3); GFR 16.5
[2017-03-19 07:00] VITALS: BP 167/85
[2017-03-19] MEDS: PANTOPRAZOLE 40 MG TABLET.DR. PO SCH (07:27)
--- NOTE | 2017-03-19 08:43 | PDOC ---
GENERAL General: see discharge summary. Problems: VITAL SIGNS Vital Signs: Vital Signs Date Time Temp Pulse Resp B/P (MAP) Pulse Ox O2 Delivery O2 Flow Rate FiO2 03/19/17 07:00 97.9 70 18 167/85 (112) 97 Room Air 97.9 03/18/17 21:33 3.0 I & O I & O Intake and Output 03/20/17 07:00 Output Total 500 ml Balance -500 ml Output Urine Total 500 ml ALLERGIES Allergies: Allergies Coded Allergies Type Severity Reaction Last Updated Verified No Known Medication Allergies Allergy Intermediate 03/11/17 Yes MEDS Medications: Current Medications Medications (Trade) Dose Ordered Sig/Broderick Start Time Stop Time Status Last Admin Dose Admin Acetaminophen/ Hydrocodone Bitart (Lortab 5/325) 1 tab PRN Q4HRS PRN 03/11/17 12:30 03/18/17 20:33 1 TAB Bisacodyl (Dulcolax Tab) 10 mg PRN DAILY PRN 03/13/17 11:30 Dexamethasone (Decadron) 40 mg DAILYWBKFT 03/15/17 12:00 03/18/17 08:01 DC 03/18/17 08:18 40 MG Docusate Sodium (Colace) 100 mg BID 03/16/17 13:00 03/18/17 20:32 100 MG Fentanyl Citrate (Fentanyl 2ml Vial) 100 mcg STK-MED ONCE 03/13/17 11:11 03/13/17 11:12 DC Fentanyl Citrate (Fentanyl 5ml Vial) 150 mcg 1X ONCE 03/15/17 11:30 03/15/17 11:31 DC 03/15/17 11:25 150 MCG Flumazenil (Romazicon) 0.5 mg STK-MED ONCE 03/15/17 10:57 03/15/17 10:58 DC Info (Do NOT chart on this entry -- for MONITORING) 1 each PRN DAILY PRN 03/12/17 09:15 03/14/17 09:14 DC Iohexol (Omnipaque 240 Mg/ml) 30 ml 1X ONCE 03/12/17 09:00 03/12/17 09:05 DC 03/12/17 10:43 30 ML Lidocaine/Sodium Bicarbonate (Buffered Lidocaine 1%) 8 ml 1X ONCE 03/15/17 11:30 03/15/17 11:31 DC 03/15/17 11:24 8 ML Midazolam HCl (Versed) 3 mg 1X ONCE 03/15/17 11:30 03/15/17 11:31 DC 03/15/17 11:25 3 MG Naloxone HCl (Narcan) 0.4 mg STK-MED ONCE 03/15/17 10:57 03/15/17 10:58 DC Ondansetron HCl (Zofran) 4 mg PRN Q6HRS PRN 03/11/17 13:15 03/14/17 23:07 4 MG Pantoprazole Sodium (Protonix) 40 mg DAILYAC 03/12/17 07:30 03/19/17 07:27 40 MG Polyethylene Glycol (miraLAX PACKET) 17 gm DAILY 03/12/17 17:00 03/18/17 08:19 17 GM Sodium Polystyrene Sulfonate (Kayexalate) 45 gm 1X ONCE 03/16/17 12:00 03/16/17 12:16 DC 03/16/17 13:14 45 GM Sodium Chloride 1,000 ml @ 125 mls/hr Q8H 03/11/17 12:30 03/19/17 05:21 125 MLS/HR Tamsulosin HCl (Flomax) 0.4 mg DAILY 03/12/17 09:00 03/18/17 08:18 0.4 MG LAB Lab: Laboratory Tests Test 03/19/17 05:20 Sodium Level 139 mmol/L (136-145) Potassium Level 5.0 mmol/L (3.5-5.1) Chloride Level 105 mmol/L (98-107) Carbon Dioxide Level 25 mmol/L (21-32) Anion Gap 9 (6-14) Blood Urea Nitrogen 51 mg/dL (8-26) Creatinine 3.6 mg/dL (0.7-1.3) Estimated GFR (Cockcroft-Gault) 16.5 Glucose Level 119 mg/dL (70-99) Calcium Level 8.6 mg/dL (8.5-10.1) SIMA MICHAUD MD Mar 19, 2017 08:43
[2017-03-19] MEDS: HYDROcodone/APAP 5/325MG 1 TAB TABLET PO PRN (08:51)
[2017-03-19] MEDS: TAMSULOSIN 0.4 MG CAP.ER.24H. PO SCH (08:52)
[2017-03-19] MEDS: POLYETHYLENE GLYCOL 3350 17 GM PACKET. PO SCH (08:52)
[2017-03-19] MEDS: DOCUSATE SODIUM 100 MG CAPSULE. PO SCH (08:52)
[2017-03-19 11:24] LABS: GAMMA UR 83.7 % (.); M-SPIKE, % 50.3 % (Not Observed); PROTEIN 24 UR 3517 mg/24 hr (30-150); PROTEIN UR 97.7 mg/dL (Not Estab.)
--- NOTE | 2017-03-19 11:44 | PDOC ---
PROGRESS NOTES Subjective Subjective 03/19/17 at 8.30 am c/c - f/u of Multiple Myeloma ROS - back pain better Objective Objective Vital Signs Date Time Temp Pulse Resp B/P (MAP) Pulse Ox O2 Delivery O2 Flow Rate FiO2 03/19/17 08:51 16 03/19/17 08:00 Room Air 03/19/17 07:00 97.9 70 167/85 (112) 97 97.9 03/18/17 21:33 3.0 Intake and Output 03/20/17 07:00 Intake Total 680 ml Output Total 500 ml Balance 180 ml Intake Oral 300 ml IV Total 380 ml Output Urine Total 500 ml Physical Exam Heart: Normal S1, Normal S2 General: Alert, Oriented X3 Lungs: Clear to auscultation Neuro: Normal speech Psych/Mental Status: Mental status NL Assessment Assessment IMPRESSION AND PLAN: 1. Multiple Myeloma clinical diagnosis - Bone lesions. The patient has evidence lytic lesions noted on CT scan of the abdomen and pelvis on 03/12/2017. There is a pathologic fracture at L2 vertebrae. Multiple small bony lucencies are best seen in the spine. PSA has been normal at 1.06. CT scan of the abdomen and pelvis on 03/12/17 does not reveal any obvious primary malignancy. CT scan of the chest 03/13/17 is negative for primary for malignancy. Faint scattered lucencies in the bony structures again raising the possibility of malignancy such as multiple myeloma versus aggressive bony demineralization. Bone scan 03/13/17: Uptake of radiopharmaceutical in the L3 vertebral body most likely due to fracture. Focal uptake within medial aspect of the right ninth and 10th ribs may be secondary to fracture or degenerative process. Focal uptake within the right shoulder likely degenerative process. Skeletal survey 03/13/17: Patchy bony demineralization. Several small calvarial lucencies compatible with lytic lesions versus venous lakes. Moderate multilevel degenerative change throughout the spine. L2 vertebral body fracture thought to be pathologic on the recent CT study. The other smaller lytic bone lesions seen on the CT abdomen/pelvis exam are not clearly visible radiographically due to its lower sensitivity. A neoplastic etiology such as multiple myeloma remains likely. s/p L2 bone biopsy by Interventional Radiology 03/14/17. Serum protein electrophoresis has already been ordered and I added immunofixation studies and serum free light chains. S/p bone marrow bx 03/15/17. I discussed in detail with the patient and his regarding the clinical diagnosis of multiple myeloma and the workup needed and he understands and agrees with the plan. I d/w Dr Solo. BM bx results pending. I started Decadron 40 mg daily x 4 days from 03/15/17 after bone marrow bx. He can be discharged today 03/19/17 and f/u with me 03/18/17. He also wants another opinion with Dr Cardenas at . 2. Normochromic normocytic anemia. Iron studies suggest anemia of chronic disease, B12 and folic acid levels are normal. This could be related to underlying possible malignancy and also renal insufficiency. 3. Leukopenia, likely reactive. Continue to monitor. 4. Renal failure with a creatinine of 5.0 on 03/13/2017 and a BUN of 51. Improving. Continue workup per Dr. Edouard. Comment Review of Relevant I have reviewed the following items rupa (where applicable) has been applied. Labs Laboratory Tests Test 03/19/17 05:20 Sodium Level 139 mmol/L (136-145) Potassium Level 5.0 mmol/L (3.5-5.1) Chloride Level 105 mmol/L (98-107) Carbon Dioxide Level 25 mmol/L (21-32) Anion Gap 9 (6-14) Blood Urea Nitrogen 51 mg/dL (8-26) Creatinine 3.6 mg/dL (0.7-1.3) Estimated GFR (Cockcroft-Gault) 16.5 Glucose Level 119 mg/dL (70-99) Calcium Level 8.6 mg/dL (8.5-10.1) Laboratory Tests Test 03/19/17 05:20 Sodium Level 139 mmol/L (136-145) Potassium Level 5.0 mmol/L (3.5-5.1) Chloride Level 105 mmol/L (98-107) Carbon Dioxide Level 25 mmol/L (21-32) Anion Gap 9 (6-14) Blood Urea Nitrogen 51 mg/dL (8-26) Creatinine 3.6 mg/dL (0.7-1.3) Estimated GFR (Cockcroft-Gault) 16.5 Glucose Level 119 mg/dL (70-99) Calcium Level 8.6 mg/dL (8.5-10.1) Medications Current Medications Acetaminophen/ Hydrocodone Bitart (Lortab 5/325) 1 tab PRN Q4HRS PRN PO PAIN Last administered on 03/19/17 08:51; Start 03/11/17 at 12:30; Stop 03/19/17 at 09:49; Status DC Tamsulosin HCl (Flomax) 0.4 mg DAILY PO Last administered on 03/19/17 08:52; Start 03/12/17 at 09:00; Stop 03/19/17 at 09:49; Status DC Pantoprazole Sodium (Protonix) 40 mg DAILYAC PO Last administered on 07:27; Start 03/12/17 at 07:30; Stop 03/19/17 at 09:49; Status DC Sodium Chloride 1,000 ml @ 125 mls/hr Q8H IV Last administered on 03/19/17 05:21; Start 03/11/17 at 12:30; Stop 03/19/17 at 09:49; Status DC Ondansetron HCl (Zofran) 4 mg PRN Q6HRS PRN IV NAUSEA/VOMITING Last administered on 03/14/17 23:07; Start 03/11/17 at 13:15; Stop 03/19/17 at 09: 49; Status DC Polyethylene Glycol (miraLAX PACKET) 17 gm DAILY PO ; Start 03/11/17 at 15:00; Stop 03/13/17 at 17:30; Status DC Iohexol (Omnipaque 240 Mg/ml) 30 ml 1X ONCE PO Last administered on 03/12/17 10:43; Start 03/12/17 at 09:00; Stop 03/12/17 at 09:05; Status DC Info (Do NOT chart on this entry -- for MONITORING) 1 each PRN DAILY PRN MC SEE COMMENTS; Start 03/12/17 at 09:15; Stop 03/14/17 at 09:14; Status DC Polyethylene Glycol (miraLAX PACKET) 17 gm DAILY PO Last administered on 08:52; Start 03/12/17 at 17:00; Stop 03/19/17 at 09:49; Status DC Lidocaine/Sodium Bicarbonate (Buffered Lidocaine 1%) 20 ml 1X ONCE IJ Last administered on 03/13/17 12:23; Start 03/13/17 at 11:15; Stop 03/13/17 at 11:16 ; Status DC Midazolam HCl (Versed) 2 mg 1X ONCE IV Last administered on 03/13/17t 12:24; Start 03/13/17 at 11:15; Stop 03/13/17 at 11:16; Status DC Fentanyl Citrate (Fentanyl 2ml Vial) 100 mcg 1X ONCE IV Last administered on 03/13/17t 12:24; Start 03/13/17 at 11:15; Stop 03/13/17 at 11:16; Status DC Lidocaine/Sodium Bicarbonate (Buffered Lidocaine 1%) 20 ml STK-MED ONCE IJ ; Start 03/13/17 at 11:11; Stop 03/13/17 at 11:12; Status DC Fentanyl Citrate (Fentanyl 2ml Vial) 100 mcg STK-MED ONCE .ROUTE ; Start at 11:11; Stop 03/13/17 at 11:12; Status DC Midazolam HCl (Versed) 2 mg STK-MED ONCE .ROUTE ; Start 03/13/17 at 11:11; Stop 03/13/17 at 11:12; Status DC Bisacodyl (Dulcolax Tab) 10 mg PRN DAILY PRN PO CONSTIPATION; Start 03/13/17 at 11:30; Stop 03/19/17 at 09:49; Status DC Lidocaine/Sodium Bicarbonate (Buffered Lidocaine 1%) 20 ml STK-MED ONCE IJ ; Start 03/15/17 at 10:41; Stop 03/15/17 at 10:42; Status DC Midazolam HCl (Versed) 5 mg STK-MED ONCE .ROUTE ; Start 03/15/17 at 10:57; Stop 03/15/17 at 10:58; Status DC Fentanyl Citrate (Fentanyl 5ml Vial) 250 mcg STK-MED ONCE .ROUTE ; Start at 10:57; Stop 03/15/17 at 10:58; Status DC Flumazenil (Romazicon) 0.5 mg STK-MED ONCE IV ; Start 03/15/17 at 10:57; Stop 03/15/17 at 10:58; Status DC Naloxone HCl (Narcan) 0.4 mg STK-MED ONCE .ROUTE ; Start 03/15/17 at 10:57; Stop 03/15/17 at 10:58; Status DC Lidocaine/Sodium Bicarbonate (Buffered Lidocaine 1%) 8 ml 1X ONCE IJ Last administered on 03/15/17 11:24; Start 03/15/17 at 11:30; Stop 03/15/17 at 11:31 ; Status DC Midazolam HCl (Versed) 3 mg 1X ONCE IV Last administered on 03/15/17 11:25; Start 03/15/17 at 11:30; Stop 03/15/17 at 11:31; Status DC Fentanyl Citrate (Fentanyl 5ml Vial) 150 mcg 1X ONCE IV Last administered on 03/15/17 11:25; Start 03/15/17 at 11:30; Stop 03/15/17 at 11:31; Status DC Dexamethasone (Decadron) 40 mg DAILYWBKFT PO Last administered on 03/18/17 08: 18; Start 03/15/17 at 12:00; Stop 03/18/17 at 08:01; Status DC Sodium Polystyrene Sulfonate (Kayexalate) 45 gm 1X ONCE PO Last administered on 03/16/17 13:14; Start 03/16/17 at 12:00; Stop 03/16/17 at 12:16; Status DC Docusate Sodium (Colace) 100 mg BID PO Last administered on 03/19/17 08:52; Start 03/16/17 at 13:00; Stop 03/19/17 at 09:49; Status DC Active Scripts Active Reported Flomax (Tamsulosin Hcl) 0.4 Mg Cap.er.24h 1 Cap PO DAILY Hydrocodone-Apap 5-325 (Hydrocodone Bit/Acetaminophen) 1 Each Tablet 1 Tab PO PRN Q4HRS PRN Vitals/I & O Vital Sign - Last 24 Hours 03/18/17 03/18/17 03/18/17 03/18/17 19:15 20:00 20:33 21:33 Temp 97.7 97.7 Pulse 91 Resp 18 18 18 B/P (MAP) 164/86 (112) Pulse Ox 95 94 94 O2 Delivery Room Air Room Air Room Air Room Air O2 Flow Rate 3.0 3.0 03/18/17 03/19/17 03/19/17 03/19/17 23:00 03:00 07:00 08:00 Temp 98.8 97.9 97.9 98.8 97.9 97.9 Pulse 72 77 70 Resp 16 16 18 B/P (MAP) 156/76 (102) 164/79 (107) 167/85 (112) Pulse Ox 96 95 97 O2 Delivery Room Air Room Air Room Air Room Air 03/19/17 08:51 Resp 16 Intake and Output 03/19/17 03/19/17 03/20/17 15:00 23:00 07:00 Intake Total 680 ml Output Total 500 ml Balance 180 ml MICHAEL CEJA MD Mar 19, 2017 11:44
--- NOTE | 2017-03-19 22:15 | DS ---
DATE OF DISCHARGE: 03/19/2017 PRIMARY DIAGNOSIS: New diagnosis of multiple myeloma. ADDITIONAL DIAGNOSES: Acute renal failure, gastritis versus gastric ulcer, L2 fracture pathologic, history of prostate cancer, recent 8th rib fracture from a coughing spell several months ago, possibly myeloma related in addition. CHIEF COMPLAINT AND HISTORY OF PRESENT ILLNESS: This is a 76-year-old white male who was met by myself in the office within the last month. He was referred by a friend who is a patient of ours. History is dating back in January breaking his 8th rib at that point in time with cough. Three 3 weeks later he had fallen and broken his right wrist. He had initially described skin burning in his right upper quadrant and back pain. A CAT scan done on the outside had been negative. He was felt to have a possible thoracic radicular type presentation on MRI, which showed diffuse marrow abnormalities throughout the spine, but a lesion called there at L3, which was suspicious for metastatic disease. PSA was checked in the office and was normal at 1.06. He does have a history of prostate cancer as mentioned above and received radiation for the same. He had a chest x-ray in the office showing evidence of lung malignancy. MRI showed a 3 cm area of decreased signal intensity involving L3 vertebral body concerning for metastasis. He was scheduled for an outpatient bone biopsy. The patient has also lost significant amount of weight over the last couple to 3 months. He had brought old lab with him showing a BUN of 26, creatinine of 1.3, done in September here in the office. He was progressively getting less strength and was complaining of abdominal pain, particularly in the epigastric with eating or drinking anything. He appeared to be somewhat dehydrated and was admitted to the hospital and to my surprise was in acute renal failure on admission with a BUN of 53 and a creatinine of 4.9. SUMMARY OF STAY: The patient was admitted, had a normal serum protein on admission, but had an electrophoresis suggesting a kappa light chain myeloma. 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 He was hydrated throughout the stay with his BUN and creatinine again being 53 and 4.9 on admission were down to 51 and 3.6 on discharge. He had been taking Aleve for the pain prior to admission and this was held. He was started on Protonix with very rapid improvement in his abdominal pain. He was started on steroids for the myeloma with marked improvement in his back pain and ability to move around the bed and around the room. He had been at the point where he was unable to get out of bed without his holding him up and was able to do it independently by the time of discharge. Dr. Alves would follow along with him and will see him as an outpatient this , and was planning on chemotherapy to start this coming Saturday. He was felt ready for discharge and this was accomplished on the day of dismissal. DISPOSITION: The patient is discharged to home, regular diet, activity as tolerated, office with Dr. Alves on , myself in the next week. Discharge meds are listed on the med rec and have been addressed, are basically his home meds. In addition, I have refilled his [place] at the time of discharge for 5/, #100, to take one every 4 hours p.r.n. pain and he will continue at least a month of Protonix 40 mg a day to ensure healing of the gastritis or the gastric ulcer which was present on admission. SIMA MICHUAD MD DR: RIMA/zhane JOB#: [id number] / [id number]
--- NOTE | 2017-03-21 15:29 | PATHOLOGY ---
PATHOLOGY REPORT * * * * * * * * FINAL DIAGNOSIS: Peripheral smear: - MODERATE LEUKOPENIA AND ABSOLUTE NEUTROPENIA WITH APPROXIMATELY 8% CIRCULATING BLASTS. - Normocytic normochromic anemia, mild. Bone marrow, aspirate smears, clot section, and core biopsy: - MILD TO MODERATELY HYPERCELLULAR MARROW SHOWIN. INVOLVEMENT BY ACUTE LEUKEMIA. SEE DESCRIPTION AND COMMENT. 2. EXTENSIVE INVOLVEMENT BY PLASMA CELL MYELOMA. COMMENT: The bone marrow shows extensive involvement by plasma cell myeloma. Plasma cells comprise approximately 60% of nucleated marrow cells and show kappa light chain restriction. The areas not involved by plasma cell myeloma show involvement by an acute leukemia. In most of these areas, blasts comprise up to 60% - 70% of nucleated marrow cells. The blasts by flow cytometry do not show lineage specific markers. The differential diagnosis includes AML with minimal differentiation and Acute undifferentiated leukemia. Correlate clinically. (JPM:mgr; 03/20/2017) Special Stains Performed: Iron stain performed on B1 and aspirate smear. CD34 (A1, B1), CD138 (A1, B1). [place] TK (A1, B1). Lambda TK (A1, B1). REPORT ELECTRONICALLY SIGNED BY: To Solo M.D. DATE/TIME: 03/21/2017 15:28 * * * * * * * * MICROSCOPIC DESCRIPTION: Laboratory Data: The WBC count is 1.9 K/CMM, and the automated WBC differential reveals 39% neutrophils, 53% lymphs, 2% monos, 6% eos, and 1% baso. The RBC count is 3.31 M/CMM, hemoglobin 10.1 G/DL, hematocrit 30.2%, MCV 91 FL, MCH 31 PG, MCHC 34 G/DL, and the RDW is 15.9%. The platelet count is 170 K/CMM. The reticulocyte count is 0.8%. The total protein is 7.7 G/DL, albumin 3.9 G/DL, and globulin is 3.8 G/DL. The BUN is 53 MG/DL, and creatinine is 4.9 MG/DL. The serum iron is 105 UG/ML, TIBC 237 UG/DL, iron saturation 44%, ferritin 537 NG/ML, vitamin B12 379 PG/ML, and folate 8.42 NG/ML. The serum kappa is 4,780.7 MG/L, and lambda is 10.2 MG/L. The kappa/lambda ratio is 468.70. Peripheral Smear: The peripheral smear is reviewed. The WBC count is moderately decreased. The WBC differential reveals a predominance of small lymphocytes and segmented neutrophils. There is a small population of circulating blasts, comprising approximately 8% of the WBC differential. The blasts are of small to medium size and have a high N/C ratio. They possess rounded to ovoid nuclei having a delicate chromatin containing one or more nucleoli. No Rivka rods are identified. There are a few eosinophils and occasional immature granulocytes (myelocytes and metamyelocytes) noted. Red blood cells predominantly appear normochromic and normocytic. Red blood cells show mild anisocytosis and no significant poikilocytosis. Platelets are low normal in number and appear normal in morphology. Aspirate Smears: Two Fernandes's-stained and one iron-stained aspirate smears are examined. The smears contain multiple marrow particles which are obviously hypercellular for age. There are focal areas of the smears showing sheet-like replacement by atypical plasma cells. The atypical plasma cells are enlarged, and possess enlarged eccentric nuclei containing variably distinct nucleoli. Other areas of the smears show a predominance of blasts with admixed small populations of maturing granulocytic precursors, erythroid precursors, and atypical plasma cells. In most of these areas, blasts comprise up to 60%-70% of nucleated marrow cells. The blasts are of small to medium size and have a high N/C ratio. The blasts possess rounded to ovoid nuclei having a delicate chromatin containing one or more nucleoli. No Rivka rods are identified. There is only a small population of maturing granulocytic precursors which do not show obvious dysplastic changes. Admixed erythroid precursors show only mild dyspoiesis. There are a few admixed eosinophils. There are focally adequate numbers of megakaryocytes which are focally clustered. These megakaryocytes are of variably ploidy. The iron stain shows adequate iron stores. No ringed sideroblasts are identified. Bone Marrow Biopsy and Clot Sections: Sections of the bone marrow biopsy reveal segments of bone marrow showing focal aspiration artifact and hemorrhage. Preserved areas of the biopsy are on the order of approximately 30% cellular. The clot section contains multiple marrow particles. Most of these particles range between 20-30% and 80% cellular. Many of the particles show sheet-like replacement by atypical plasma cells. Other areas of the marrow consist predominantly of medium-sized immature mononuclear cells compatible with the blast population. These areas show small numbers of admixed erythroid and maturing granulocytic precursors and plasma cells. There are focal admixed megakaryocytes which are of variable ploidy. There are no abnormal lymphoid aggregates. There are no granulomas. Immunoperoxidase stains for CD34 and CD138 and in situ hybridization for kappa and lambda light chain are obtained and yield the following results: CD138 (A1): Atypical plasma cells positive having an interstitial distribution and focally present in solid clusters. CD34 (A1): Blast cells weakly positive. CD138 (B1): Atypical plasma cells positive having an interstitial distribution and present in solid clusters and sheets; atypical plasma cells overall comprise approximately 60% of nucleated marrow cells. CD34 (B1): Blast cells weakly positive. [place] TK (B1): Atypical plasma cells positive and show kappa light chain restriction. Lambda TK (B1): Only a few scattered plasma cells positive. The iron stain of the clot section shows adequate to mildly increased reticuloendothelial iron stores. Special Studies: Bone marrow submitted for flow cytometry has a viability of 92.8%. Granulocytes comprise 11% of total cells and show phenotypic evidence of maturation. Monocytes comprise 0.7% of total cells. CD45 dim cells comprise 80.9% of total cells. CD45 dim, CD34 positive cells (blast cells) comprise 50.4% of total cells. The blasts are CD4, CD5, CD7, CD33, CD34, CD38, CD56 (dim), CD117 (dim), HLA-DR (variable) positive. The blasts are CD13, CD14, CD64, CD19, and CD10 negative. The blasts show expression of TDT and lack significant expression of CD3, MPO, CD22, and CD79a. Lymphocytes comprise 6.2% of total cells. T-cells comprise 82% of lymphoid cells and show a CD4/CD8 ratio of 0.8. NK-cells comprise 7% of lymphoid cells. Mature B-cells comprise 6% of lymphoid cells and are polyclonal with a kappa:lambda ratio of 0.92. Plasma cells comprise approximately 10.4-11.6% of total cells. The plasma cells are CD38, CD138, CD56, CD20 (dim), CD117 (dim) positive and show clonal cytoplasmic kappa light chain expression with a kappa:lambda ratio of 66.8. (BABAKM:; 03/20/2017) GROSS PATHOLOGY: A. Received in formalin labeled "Charles Avina," is a single needle core of singh bone, measuring 1.4 cm in length and 0.2 cm in diameter. The specimen is submitted entirely in cassette A1, following decalcification. B. Received in formalin labeled "Charles Avina," is blood coagulum, measuring 2.8 x 2.3 x 0.4 cm in aggregate dimensions. The specimen is submitted entirely in cassette B1. (JPM; 03/15/17) INITIAL CPT CODE(S): 01146, 63449, 12129(2), 59539, 52190(2), 48862(2), 34018(2), 46017(2), 76354(2) Professional services [place] [address] Technical services performed by [facility] at [address] [place] [address], [address] [address]. SPECIMEN(S) RECEIVED: A.Bone marrow, biopsy B.Bone marrow, aspirate smears C.Bone marrow, aspirate smears D.Peripheral smear CLINICAL HISTORY: Lytic lesion, elevated free kappa light chains PATIENT: CHARLES AVINA /AGE: 410/04/1940 (Age: 76) PATIENT #: [id number] ALT CASE #: SPECIMEN COLLECTION DATE: 03/15/2017 SPECIMEN RECEIVED DATE: 03/15/2017 [facility] - [address] [place] [address] - PHONE: [phone] * * * END OF REPORT * * *
== END 2017-03-19 09:49 | disposition home or self-care (01) | DRG 823 ==
LOC: 5 NORTH 10:55
PROVIDERS: ADMIT Family Medicine; ATTEND Family Medicine
PROC: 0QB03ZX Excision of Lumbar Vertebra, Percutaneous Approach, Diagnostic (ICD-10-PCS; principal; 2017-03-13)
PROC: 07DR3ZX Extraction of Iliac Bone Marrow, Percutaneous Approach, Diagnostic (ICD-10-PCS; 2017-03-15)
DX: C90.00 Multiple myeloma not having achieved remission (principal); N17.0 Acute kidney failure with tubular necrosis; M84.48XA Pathological fracture, other site, initial encounter for fracture; D70.9 Neutropenia, unspecified; E87.5 Hyperkalemia; E86.0 Dehydration; R63.0 Anorexia; K29.70 Gastritis, unspecified, without bleeding; D64.9 Anemia, unspecified; I12.9 Hypertensive chronic kidney disease with stage 1 through stage 4 chronic kidney disease, or unspecified chronic kidney disease; M89.9 Disorder of bone, unspecified; I25.10 Atherosclerotic heart disease of native coronary artery without angina pectoris; M54.5 Low back pain; R59.9 Enlarged lymph nodes, unspecified; K59.00 Constipation, unspecified; N18.2 Chronic kidney disease, stage 2 (mild); N40.0 Benign prostatic hyperplasia without lower urinary tract symptoms; Z82.49 Family history of ischemic heart disease and other diseases of the circulatory system; Z85.46 Personal history of malignant neoplasm of prostate; Z87.891 Personal history of nicotine dependence; Z92.3 Personal history of irradiation
CPT/HCPCS: 20225; 36415; 38221; 71250; 74176; 76942; 77012; 77075; 78306; 80048; 80053; 81001; 82575; 82607; 82728; 82746; 83520; 83540; 83550; 84156; 84165; 84166; 85007; 85025; 85045; 85610; 86334; 88184; 88185; 88237; 88305; 88307; 88311; 88313; 88341; 88342; 88364; 88365; 96374; 99152; 99153; A9503; C1892; G0364; J2250; J2405; J3010; J8540; Q9966